=== PATIENT | male | born 1955 | race Caucasian/White ===

== ENCOUNTER 2023-01-23 10:21 | Inpatient (IN) | payer MEDICARE, SELFPAY ==
[2023-01-23] VITALS (63 sets, daily range): BP systolic 52–108; BP diastolic 36–86; PULSE 100–174; RESP 20–35; TEMP 36.2–37.9; O2SAT 93–100; BMI 47.2
--- NOTE | 2023-01-23 | ECHO_ITS ---
Patient Info Name: Harry Cuevas Age: 67 years : 1955 Gender: Male Ht: 67 in Wt: 302 lbs BSA: 2.62 m2 HR: 115 bpm BP: 70 / 50 mmHg Heart Rhythm: Tachycardia Exam Date: 01/23/2023 1:36 PM Exam Location: [facility] Pulmonary Patient Status: Inpatient Admit Date: 01/23/2023 Staff Ordering Physician: Renee Forrest MD Oracle Data Warehouse Developer: Carlo Colon RDCS, RT Attending Provider: Rosemary Zaidi DO Referring Physician: Lon ARENAS; Exam Type: CA echo dop color flow w con Study Info Indications I50.9 - Heart failure, unspecified Complete two-dimensional, color flow and Doppler transthoracic echocardiogram is performed with contrast to opacify the left ventricle and to improve the deliniation of the left ventricle endocardial borders. Summary 1. Left ventricular chamber dimension is mildly enlarged. 2. Left ventricular systolic function is moderately reduced, estimated at 35-40%. 3. There is mildly increased left ventricular wall thickness. 4. The left ventricular diastolic function is grade I diastolic dysfunction. 5. Right ventricular chamber dimension is mildly enlarged. 6. Right ventricular systolic function is reduced. 7. Left atrial chamber dimension is moderately enlarged. 8. Right atrial chamber dimension is mildly enlarged. 9. There is mild mitral valve regurgitation. Left Ventricle Left ventricular chamber dimension is mildly enlarged. Left ventricular systolic function is moderately reduced, estimated at 35-40%. There is mildly increased left ventricular wall thickness. The left ventricular diastolic function is grade I diastolic dysfunction. Right Ventricle Right ventricular chamber dimension is mildly enlarged. Right ventricular systolic function is reduced. Left Atria Left atrial chamber dimension is moderately enlarged. Right Atria Right atrial chamber dimension is mildly enlarged. Atrial Septum Intact interatrial septum visualized by color flow imaging. Aortic Valve The aortic valve is probable trileaflet. There is no aortic valve stenosis. There is trace aortic valve regurgitation. Pulmonic Valve The pulmonic valve is normal. There is no pulmonic valve stenosis. There is trace pulmonic regurgitation. Mitral Valve The mitral valve has normal leaflets. There is no mitral valve stenosis. There is mild mitral valve regurgitation. Tricuspid Valve The tricuspid valve leaflets are normal. There is no significant tricuspid valve stenosis. There is trace tricuspid valve regurgitation. Pericardium/Pleural The pericardium appears normal. There is no pericardial effusion. Aorta The aortic root size at the sinus of Valsalva is normal. The prox ascending aorta size is normal. Left Ventricular Outflow Tract Name Value Normal LVOT 2D LVOT Diameter 2.17 cm LVOT Doppler LVOT Peak Gradient 1 mmHg LVOT Mean Gradient 0 mmHg LVOT VTI 8.56 cm LVOT VTI/AV VTI Ratio 0.58 LVOT Stroke Volume 31.58 ml LVOT CO
--- NOTE | ~2023-01-23 | US_ITS ---
EXAMINATION: US renal BI DATE: 01/23/2023 17:12 INDICATION: Acute kidney injury. TECHNIQUE: Multiple ultrasound grayscale images of the kidneys were obtained. COMPARISON: CT 01/23/2023 FINDINGS: The right kidney measures 10.1 x 5.9 x 5.4 cm. The left kidney measures 10.6 x 6.7 x 5.1 cm. The kidn eys demonstrate normal parenchymal echogenicity. There is no hydronephrosis. The bladder is decompres sed by a Mcneal catheter. IMPRESSION: 1. Normal kidneys. No hydronephrosis. Reviewed, dictated and finalized at location A. L OPERATOR WHISKEY
--- NOTE | ~2023-01-23 | XR_ITS ---
XR chest 1V portable DATE: 01/25/2023 08:03 INDICATION: Septic shock TECHNIQUE: Portable upright AP chest on 01/25/2023 at 0748 hours COMPARISON: January 24, 2020 portable AP chest at 0507 hours January 23, 2023 portable AP chest at 26 hours FINDINGS: Cardiomegaly. There is left lower lobe infiltrate and/atelectasis and mild left pleural eff usion. No right pleural effusion is evident. IMPRESSION: No significant change since January 24, 2023 Reviewed, dictated and finalized at location A. ER PICKER
--- NOTE | ~2023-01-23 | XR_ITS ---
XR abdomen/kub 1V DATE: 01/26/2023 09:42 INDICATION: Vomiting, abdominal distention and tenderness TECHNIQUE: 2 portable supine AP views of the abdomen and pelvis COMPARISON: CTA chest abdomen FINDINGS: There is infiltrate or atelectasis in the lower lung zones. Prominent gaseous distention of the stomach. No small or large bowel dilatation or obstruction is not ed. No visceromegaly or significant abnormal calcification is noted. Prominent degenerative changes of the thoracic and lumbar spine. IMPRESSION: Prominent gaseous distention of the stomach; no small or large bowel dilatation or obstru ction is evident Reviewed, dictated and finalized at Location A. Reviewed, dictated and finalized at location A. F AIR DEFENSE OFFICER IMPRESSION: Prominent gaseous distention of the stomach; no small or large miles l dilatation or obstruction is evident
--- NOTE | ~2023-01-23 | XR_ITS ---
Portable chest x-ray Comparison: 01/23/2023 Clinical History: Pulmonary edema Findings: Small left pleural effusion is present. There is left basilar atelectatic change. Pulmonar y edema is significantly improved from prior exam. Cardiomediastinal silhouette is stable. Bones and soft tissues are unremarkable. Impression: Significant interval improvement in pulmonary edema since prior exam. Small left pleural effusion and probable left lower lobe atelectatic change. Reviewed, dictated and finalized at location . E [employer] Impression: Significant interval improvement in pulmonary edema since prior exam. Small left pleural effusion and probable left lower lobe atelectatic change.
--- NOTE | ~2023-01-23 | XR_ITS ---
Portable chest x-ray Comparison: 01/23/2023 Clinical History: Dyspnea Findings: There is worsening [id number] pulmonary edema pattern. No definite pleural effusions . Cardiomediastinal silhouette is stable. Bones and soft tissues are unremarkable. Impression: Worsening [id number] pulmonary edema pattern. Reviewed, dictated and finalized at [facility]. BOOKER Impression: Worsening [id number] pulmonary edema pattern.
--- NOTE | ~2023-01-23 | XR_ITS ---
XR abdomen NG/feed tube insert DATE: 01/26/2023 10:56 INDICATION: NG tube placement TECHNIQUE: Portable upright AP view on January 26, 2023 at 1050 hours COMPARISON: January 26, 2023 KUB at 0938 hours FINDINGS: An NG tube is present within the body of the stomach, the proximal side-port approximately 6 cm distal to the diaphragmatic hiatus. There is still some gaseous distention of the stomach. IMPRESSION: NG tube in stomach Reviewed, dictated and finalized at Location A. Reviewed, dictated and finalized at location A. LESOFT ADMINISTRATOR IMPRESSION: NG tube in stomach
--- NOTE | ~2023-01-23 | XR_ITS ---
Portable chest x-ray Comparison: None Clinical History: Chest pain Findings: Lungs are clear, without focal consolidation or pleural effusion. Cardiomediastinal silho uette is prominent. Bones and soft tissues are unremarkable. Impression: Clear lungs. Possible cardiomegaly. Reviewed, dictated and finalized at location . AL MANAGER Impression: Clear lungs. Possible cardiomegaly.
--- NOTE | ~2023-01-23 | CT_ITS ---
EXAMINATION: CTA chest abdomen pelvis DATE: 01/23/2023 11:39 AUTOMATIC GRINDER OPERATOR INDICATION: Chest pain. Suspected dissection. TECHNIQUE: Computed tomographic angiography (CTA) of the chest, abdomen, and pelvis was performed wit hout and with 100 mL Omnipaque-350 intravenous contrast. The dose-length product was 2073.87 mGy-cm. Maximum intensity projection 3D-reconstructions of the aorta and other arteries were constructed by zainab aparicio technologist on a separate workstation. COMPARISON: None. FINDINGS: CHEST CTA: Thoracic aorta within normal limits without aneurysm or dissection. Heart size normal. No large centr al pulmonary embolism. No thoracic lymphadenopathy. There is left lower lobe airspace consolidation, consistent with pneumonia. No endobronchial lesions. No pneumothorax. No pulmonary nodules or masses. ABDOMEN AND PELVIS CTA: Abdominal aorta is within normal limits without evidence for aneurysm or dissection. The celiac axis, SMA, renal arteries and KIKO are widely patent. Fatty infiltration of the liver. Gallbladder is distended. The spleen, pancreas, adrenal glands and k idneys are unremarkable. Gallbladder is present. Nonobstructive bowel pattern. No lymphadenopathy. Th ere is severe thoracolumbar spondylosis. There are degenerative changes of the hips. IMPRESSION: 1. Left lower lobe pneumonia with small left pleural effusion. 2: No significant vascular abnormality. No evidence for dissection. Reviewed, dictated and finalized at location L. MATIC GRINDER OPERATOR
--- NOTE | 2023-01-23 10:39 | ECG_ITS ---
Measurements Intervals [place] Rate: 143 P: MT: 0 QRS: 32 QRSD: 148 T: 16 QT: 304 QTc: 470 Interpretive Statements ATRIAL FIBRILLATION WITH RAPID VENTRICULAR RESPONSE INDETERMINATE AXIS RIGHT BUNDLE BRANCH BLOCK [120+ ms QRS DURATION, UPRIGHT V1, 40+ ms S IN I/aVL/V4/V5/V6] ABNORMAL ECG NO PREVIOUS ECG AVAILABLE FOR COMPARISON Electronically Signed On 01-23-2023 12:07:44 PRICING INTERN by Олег Santana M.D.
--- NOTE | 2023-01-23 10:44 | PC.NURSE ---
Setting up to cardiovert patient
[2023-01-23] MEDS: SODIUM CHLORIDE 0.9% IV 1,000 ML 999 ML IV CONT ×2 (10:45→12:18)
--- NOTE | 2023-01-23 10:45 | ED.CHESTPAIN ---
HPI - Chest Pain General Chief Complaint: Chest Pain Stated Complaint: chest and back pain/sob Time Seen by Provider: 01/23/23 10:34 Source: patient and EMS Mode of arrival: ambulatory Limitations: clinical condition History of Present Illness HPI narrative: Patient is a 67-year-old male presenting to the emergency department for evaluation of generalized weakness, chest pain with radiation to the back. Patient is unwell appearing at time of assessment, diaphoretic with extremities cool, clammy. Patient is currently alert and oriented to person, place, to time. Reporting aching chest pain over the past 12 hours. Patient reports pain began last night after he attended a caodaism dinner. Patient with associated weakness, shortness of breath and radiation of pain to the back. Patient has a history of hypertension, hyperlipidemia, no history of heart attack or heart problems. He does see a bottom filler at [facility]. No syncopal event. No lower extremity numbness. No ripping or tearing sensation to the flank. Related Data Home Medications Medication Instructions Recorded Confirmed allopurinol 300 mg tablet 300 mg PO DAILY 01/23/23 01/23/23 amlodipine 10 mg-benazepril 20 mg 1 cap PO DAILY 01/23/23 01/23/23 capsule atorvastatin 10 mg tablet 10 mg PO DAILY 01/23/23 01/23/23 furosemide 40 mg tablet 40 mg PO DAILY 01/23/23 01/23/23 levothyroxine 175 mcg tablet 175 mcg PO DAILY 01/23/23 01/23/23 metoprolol succinate 25 mg 25 mg PO DAILY 01/23/23 01/23/23 tablet,extended release 24 hr naproxen 500 mg tablet 500 mg PO BID 01/23/23 01/23/23 potassium chloride 10 mEq 10 meq PO DAILY 01/23/23 01/23/23 tablet,extended release semaglutide 14 mg tablet (Rybelsus) 14 mg PO DAILY 01/23/23 01/23/23 sildenafil 100 mg tablet 100 mg PO DAILY PRN Erectile 01/23/23 01/23/23 Dysfunction Allergies Allergy/AdvReac Type Severity Reaction Status Date / Time No Known Allergies Allergy Unverified 01/23/23 12:26 Review of Systems Review of Systems: ROS unobtainable: Yes unobtainable due to medical condition [facility] Past Medical History Medical History Gout HTN (hypertension), benign Hypothyroidism Obesity Surgical History Surgical History History of tonsillectomy and adenoidectomy Hx of cardiac cath Family History Family History Mother Carcinoma of colon Father Parkinson disease Social History Social History (Updated 01/23/23 @ 15:04 by Neetu Pinzon NP) Social History: He lives with his who is the poa. He has 2 children and is retired from the [employer] [place]. Code status full code Smoking status: Never smoker Alcohol intake: never Substance use: never Living arrangements: with family Gender identity (if verbalized by the patient): Male Exam Narrative: GENERAL: Awake, alert, diaphoretic, pale, ill-appearing HEAD: Normocephalic, atraumatic. EYES: PERRLA and EOMI. ENT: Nares clear, no rhinorrhea or epistaxis. Mucous membranes dry NECK: Supple. CHEST: Tachypneic, shallow breath sounds bilaterally HEART: Tachycardic, regular rhythm ABDOMEN: Obese, non distended, non tender EXTREMITIES: Normal range of motion. No pitting edema. SKIN: Warm, dry, no rash. NEURO:No focal deficits. Alert and oriented x3 Course Vital Signs Vital signs: Vital Signs Pulse Rate 159 H 01/23/23 10:30 Pulse Oximetry 97 01/23/23 10:30 Oxygen Delivery Room Air 01/23/23 10:30 Temperature 37.7 C H 01/23/23 18:09 Pulse Rate 109 H 01/23/23 18:46 Respiratory Rate 30 H 01/23/23 16:48 Blood Pressure 106/68 01/23/23 18:46 Pulse Oximetry 94 01/23/23 16:48 Oxygen Delivery BiPAP 01/23/23 16:48 Fraction of Inspired Oxygen 30 01/23/23 15:15 Procedures Arterial Line Arterial line #1: Date of Ar
[2023-01-23 10:50] LABS: Hematocrit 47.4 % (42.0-52.0); Hemoglobin 15.9 g/dL (14.0-18.0); Mean Corpuscular HGB Conc 33.5 g/dl (32-36); Mean Corpuscular Hemoglobin 30.7 pg (26-34); Mean Corpuscular Volume 91.5 fl (80-100); Mean Platelet Volume 9.5 fl (7.4-10.4); Platelet Count Result 166 k/mm3 (150-375); Red Blood Count 5.18 M/mm3 (4.6-6.20); Red Cell Distribution Width 14.9 % (11.5-14.5)
[2023-01-23] MEDS: fentaNYL CITRATE INJ (*CRX) 100 MCG/2 ML VIAL (10:51)
[2023-01-23] MEDS: ONDANSETRON INJ 4 MG/2 ML VIAL (10:55)
[2023-01-23 11:00] LABS: INR 1.4; Partial Thromboplastin Time 31.2 SECONDS (22.3-36.8); Prothrombin Time 16.4 Seconds (11.1-14.7)
[2023-01-23 11:07] LABS: Alanine Aminotransferase 43 U/L (6-50); Albumin Level 3.5 g/dL (3.5-5.1); Alkaline Phosphatase 56 U/L (38-126); Anion Gap 12 mmol/L (8-16); Aspartate Amino Transferase 30 U/L (17-59); Band Neutrophils Percent 11 % (0-6); Basophils Absolute Manual 0.24 K/mm3 (0.0-0.1); Basophils Percent Manual 1 % (0-1); Bilirubin,Total 3.3 mg/dL (0.2-1.3); Blood Urea Nitrogen 30 mg/dL (9-20); Calcium 8.8 mg/dL (8.4-10.2); Carbon Dioxide 22 mmol/L (22-30); Chloride 104 mmol/L (98-107); Estimated CRCL calculation 47 ml/min; Estimated Glomerular Filt Rate 36; Glucose 134 mg/dL (65-110); Lipase 68 U/L (23-300); Lymphocytes Absolute Manual 2.16 K/mm3 (1.1-4.5); Monocytes Absolute Manual 0.72 K/mm3 (0.1-0.90); Monocytes Percent Manual 3 % (3-9); Neutrophils Absolute Manual 20.88 K/mm3 (1.3-6.7); Neutrophils Percent Manual 76 % (46-73); Platelet Estimate Adequate (Adequate); Potassium 3.6 mmol/L (3.4-5.0); Schistocytes None Seen (NORMAL); Sodium 138 mmol/L (137-145); Total Cells Counted 100
[2023-01-23] MEDS: ASPIRIN 81 MG CHEWABLE TABLET 324 MG PO (11:10)
[2023-01-23 11:11] LABS: NT Pro B Type Natriuretic Pept 10900 pg/mL (19.9-100); Troponin I 0.023 ng/mL (0.000-0.034)
[2023-01-23] MEDS: NOREPINEPHRINE 8 MG/D5W 250 ML 8 MG/250 ML BAG 9.38 MG IV CONT (11:34)
--- NOTE | 2023-01-23 11:43 | ECG_ITS ---
Measurements Intervals [place] Rate: 120 P: 52 MI: 153 QRS: 22 QRSD: 150 T: 33 QT: 318 QTc: 451 Interpretive Statements SINUS TACHYCARDIA RIGHT BUNDLE BRANCH BLOCK [120+ ms QRS DURATION, UPRIGHT V1, 40+ ms S IN I/aVL/V4/V5/V6] ABNORMAL ECG COMPARED TO ECG 01/23/2023 10:36:58 SINUS TACHYCARDIA NOW PRESENT Electronically Signed On 01-23-2023 12:08:14 FINANCIAL REPORT SERVICE SALES AGENT by Олег Santana M.D.
[2023-01-23 11:51] LABS: Lactic Acid Reflex 6.2 mmol/L (0.7-2.0)
--- NOTE | 2023-01-23 12:02 | PC.NURSE ---
adrián from the lab called stated lab needs a new green and red top redraw - notified charge and computer lab aide
[2023-01-23] MEDS: HEPARIN SODIUM 5,000 UNITS/ML VIAL 7500 UNITS IV PUSH (12:18)
[2023-01-23] MEDS: HEPARIN SOD/D5W 100 UNITS/ML 25,000 UNITS/250 ML BAG 15 UNITS IV CONT (12:19)
[2023-01-23 12:28] LABS: Magnesium 1.7 mg/dL (1.6-2.3); Phosphorus 3.4 mg/dL (2.5-4.5)
[2023-01-23 12:37] LABS: NT Pro B Type Natriuretic Pept 10500 pg/mL (19.9-100)
--- NOTE | 2023-01-23 12:51 | PC.NURSE ---
Dr. Ewing at bedside speaking with ptHarry GUPTA to increase levophed to 15
--- NOTE | 2023-01-23 12:56 | PM.IMHP ---
H&P: HPI History of Present Illness Date/Time: 01/23/23 12:56 Chief Complaint: Chest pain Narrative: This is a 67-year-old male patient who complained of generalized weakness, chest pain that radiated to his back. At the time that I assessed him he was complaining more of left shoulder and left lower back pain. The patient stated the pain is worse with coughing. The pain the patient has been having chest pain for over 12 hours. Patient stated it began last night after he attended a islam dinner. We need patient is short of breath. He has a history of hypertension and hyperlipidemia. He has had no previous history of a myocardial infarction. He has a bilingual manager who is at [facility] [employer]. He denied any fever chills but states that he has a cough. His white count was noted to be 24,000. Neutrophil percentage is 76. Bands are 11. On his ABGs is pH is 7.414 CO2 was 26.5. BUN is 30 creatinine 1.9. GFR is 36 lactic [place] 6[place] [address]. Influenza A/B and RSV and COVID are negative. The patient became hypotensive. And the patient initially was refusing a central line. A PICC line has been ordered. I also offered a central line to the femoral area as well. Chest x-ray was read as clear lungs possible cardiomegaly. Chest abdominal pelvis CTA was read as the following. Left lower lobe pneumonia with small left pleural effusion. 2: No significant vascular abnormality. No evidence for dissection. The patient was given Levophed, cefepime, azithromycin, heparin drip,, vancomycin and IV fluids in the emergency room. The patient became short of breath and repeat chest x-ray was performed and was read as worsening mild to moderate pulmonary edema pattern. The patient was given IV Lasix and placed on a BiPAP. The supervisor plate forming has been consulted and has already seen the patient. The patient is being admitted to inpatient status on the date of service of 01/23/2023. Review of Systems Review of Systems: See HPi All systems reviewed & are unremarkable except as noted in HPI and below Constitutional: Constitutional: Reports as per HPI and Reports no additional constitutional complaints Eyes: Eyes: Reports as per HPI and Reports no additional eye complaints ENT: Reports system reviewed and no additional complaints, except as documented and Reports Normal hearing present Cardiovascular: Cardiovascular: Reports no additional cardiovascular complaints Respiratory: Respiratory: Reports no additional respiratory complaints and Reports no additional respiratory complaints Gastrointestinal: Gastrointestinal: Reports as per HPI and Reports no additional gastrointestinal complaints Musculoskeletal: Musculoskeletal: Reports no additional musculoskeletal complaints Integumentary/Breasts: Skin/Breast: Reports system reviewed and no additional complaints, except as docu and Reports as per HPI Neurologic: Reports system reviewed and no additional complaints, except as documented, Reports as per HPI and Reports Normal hearing present Psychiatric: Psychiatric: Reports no additional psychiatric complaints and Reports as per HPI Endocrine: Endocrine: Reports no additional endocrine complaints Hematologic/Lymphatic: Hematologic/Lymphatic: Reports no additional hematologic/lymphatic complaints Allergic/Immunologic: Allergic/Immunologic: Reports no additional allergic/immunologic complaints PMFSH Past Medical History Medical History Gout HTN (hypertension), benign Hypothyroidism Obesity Surgical History Surgical History History of tonsillectomy and adenoidectomy Hx of cardiac cath Family History Family History Mother Carcinoma of colon Father Parkinson disease Social History Social History (Updated 01/23/23 @ 15:04 by Neetu Pinzon NP) Social History: He
[2023-01-23 12:57] LABS: Influenza A QL RT-PCR Negative (Negative); Influenza B QL RT-PCR Negative (Negative); RSV RNA, RT-PCR Negative (Negative); SARS-CoV-2 RNA PCR Negative
--- NOTE | 2023-01-23 13:02 | WPDCNINT ---
Assessment and Plan Assessment and plan (1) Septic shock: Code(s): A41.9 - Sepsis, unspecified organism; R65.21 - Severe sepsis with septic shock Status: Acute Assessment and Plan: Patient presented with cough, weakness, chest pain, back pain which is likely related to coughing -01/23/2023: Chest CTA showed left lower lobe pneumonia with small left pleural effusion, no significant vascular abnormality, no evidence of dissection. No large central pulmonary embolus. Fatty infiltration of the liver, gallbladder is distended, nonobstructive bowel pattern. -patient is hypotensive with lactic acid of 6.2 -will trend lactic acid level -patient remains hypotensive after 1 L of IV fluids, started on Levophed, maintain MAP > 65 mmHg for adequate end organ perfusion -patient also has elevated bilirubin of 3.3 -creatinine is up to 1.9 -started on vancomycin, cefepime and azithromycin (01/23) -add stress dose steroids (2) Pneumonia: Code(s): J18.9 - Pneumonia, unspecified organism Status: Acute Assessment and Plan: Patient has left lower lobe pneumonia, antibiotics as above -continue supplemental oxygen -will add bronchodilators (3) Acute kidney injury: Code(s): N17.9 - Acute kidney failure, unspecified Status: Acute Assessment and Plan: Acute kidney injury likely related to septic shock, infection, hypotension -creatinine on admission is 1.9 -patient receiving fluids -will obtain CK levels, urine lytes and urine eosinophils -check renal ultrasound -monitor urine output, renal function electrolytes (4) Hyperbilirubinemia: Code(s): E80.6 - Other disorders of bilirubin metabolism Status: Acute Assessment and Plan: Hyperbilirubinemia, distended gallbladder and fatty infiltration were seen on CTA of the chest, abdomen and pelvis -will obtain right upper quadrant ultrasound -LFTs are within normal limits -continue to monitor (5) Hypothyroidism: Code(s): E03.9 - Hypothyroidism, unspecified Status: Acute Assessment and Plan: Will continue levothyroxine -TSH level is within normal limits (6) HTN (hypertension), benign: Code(s): I10 - Essential (primary) hypertension Status: Acute Assessment and Plan: Patient has taken his antihypertensive medications on the day of admission which are amlodipine/benazepril, furosemide, metoprolol -continue to hold all these medications for now patient is on pressors (7) Atrial fibrillation with RVR: Code(s): I48.91 - Unspecified atrial fibrillation Status: Acute Assessment and Plan: AFib RVR with hemodynamic compromise on admission status post cardioversion with improvement to sinus tachycardia with better rate controlled -patient started on heparin infusion -proBNP is elevated to 10,900 -troponin x1 is negative -will check echocardiogram -cardiology has been consulted from the ER Plan DVT prophylaxis: On heparin infusion Stress ulcer prophylaxis: Protonix Nutrition: Clear liquid diet for now Code Status: Full code Critical Care Time Spent: 51 minutes Due to a high probability of clinically significant, life threatening deterioration, the patient required my highest level of preparedness to intervene emergently and I personally spent this critical care time directly and personally managing the patient. This critical care time included obtaining a history; examining the patient; pulse oximetry; ordering and review of studies; arranging urgent treatment with development of a management plan; evaluation of patient's response to treatment; frequent reassessment; and discussions with other providers. It was exclusive of separately billable procedures and treating other patients and teaching time. Please see Assessment and Plan section and the rest of the note for further information on patient assessment and treatment This dictation may have been done utilizing a voice recognition
[2023-01-23] MEDS: IPRATROPIUM BR 0.02% INH SOLN 0.5 MG/2.5 ML VIAL INHALATION ×2 (13:20→21:03)
[2023-01-23 13:34] LABS: Creatine Kinase 33 U/L (55-170)
[2023-01-23] MEDS: LIDOCAINE 5% PATCH 1 PATCH TRANSDERM (13:38)
[2023-01-23] MEDS: LIDOCAINE HCL 1% PF INJ 5 ML VIAL INFILTRATE (14:00)
[2023-01-23 14:26] LABS: Alveolar/Arterial O2 Gradient 97.9 mmHg; Base Excess ABG -6.2 mEq/l (+/-2.0); Carboxyhemoglobin 1.5 % THb (0-2.0); Fractional Inspired Oxygen 30 %; HCO3 ABG 16.6 mEq/l (22.0-26.0); Methemoglobin ABG 0.4 %THb (0-1.5); Oxygen Content ABG 19.2 %vol (16.0-22.0); Oxygen Saturation ABG 96.7 % (95.0-100.0); Oxyhemoglobin 94.6 % THb (90.0-100.0); PCO2 ABG 26.5 mmHg (35.0-45.0); PO2 ABG 84.9 mmHg (80.0-100.0); PO2 FiO2 Ratio Arterial Blood 2.83 %; Reduced Hemoglobin 3.5 %THb (0-5.0); Total Hemoglobin 14.4 g/dL (12.0-18.0); pH ABG 7.415 (7.350-7.450)
[2023-01-23 14:26] LABS: Reflex Lactic Acid Yes or No Add Lactic
[2023-01-23 14:27] LABS: Device NON-INVASIVE VENT; Modified Allen's Test Pass; Site Drawn LEFT RADIAL
[2023-01-23 14:28] LABS: Non-Invasive Expiratory Pressure 5 CMH2O; Non-Invasive Inspiratory Pressure 12 CMH2O; Non-Invasive Vent Rate 4 /MIN
--- NOTE | 2023-01-23 14:34 | ADMGEN ---
This patient, Harry Cuevas, was admitted to Intensive Care Unit-6. Patient/family oriented to hospital policies and general routines including ID bracelet, bed and alarms, visiting hours, pain management, procedures, bathroom and other care routines, personal items, smoking policy, room service/diet, and visiting hours. Information on how to activate the Rapid Response Team has been discussed. Patient/Family are encouraged to report perceived risks to care and to ask questions if they do not understand what they are told or what they should do.
--- NOTE | 2023-01-23 14:52 | PM.CNCAR ---
Assessment and Plan Assessment and plan (1) Atrial fibrillation with RVR: Code(s): I48.91 - Unspecified atrial fibrillation Status: Acute Assessment and Plan: status post emergent cardioversion in the ER. Continue heparin drip. 2D echocardiogram Doppler is ordered and will be reviewed. (2) Acute kidney injury: Code(s): N17.9 - Acute kidney failure, unspecified Status: Acute Assessment and Plan: Likely secondary to septic shock/ hypotension from septic shock (3) Septic shock: Code(s): A41.9 - Sepsis, unspecified organism; R65.21 - Severe sepsis with septic shock Status: Acute Assessment and Plan: from pneumonia (4) HTN (hypertension), benign: Code(s): I10 - Essential (primary) hypertension Status: Acute Assessment and Plan: hold BP meds for now (5) Obstructive sleep apnea: Code(s): G47.33 - Obstructive sleep apnea (adult) (pediatric) Status: Acute Assessment and Plan: on BiPAP (6) Hyperlipidemia: Code(s): E78.5 - Hyperlipidemia, unspecified Status: Acute Assessment and Plan: continue statin (7) Pneumonia: Code(s): J18.9 - Pneumonia, unspecified organism Status: Acute Assessment and Plan: started on antibiotics . White count is significantly elevated in left lower lobe pneumonia noted on CT scan. (8) Cardiomyopathy: Code(s): I42.9 - Cardiomyopathy, unspecified Status: Acute Assessment and Plan: initial echo shows ejection fraction of 30-40%. While I cannot completely exclude the cardiomyopathy being a primary issue, it is more likely that it is secondary to underlying sepsis. he is on Levophed and vasopressin to be started and up titrated. Further supportive care through the venetian blind assembler, Dr. Ewing. Continue to trend troponins but 1st initial troponin is negative. History of Present Illness History of Present Illness Consult date/time: 01/23/23 14:52 Requesting physician: Renee Forrest MD Consult reason: atrial fibrillation Reason For Visit: septic shock,pneumonia,a fib with rvr Narrative: Reason consultation: Shock, atrial fibrillation Requesting provider: Dr. Forrest Date of service 01/23/2023 History patient is a 67-year-old male who had formally seen Cardiology at [facility]. Patient states that he did undergo cardiac catheterization in the past and did not have significant coronary disease. We details of this are not known. He does not routinely see cardiology at this point. He does have a family history of coronary disease and he himself has a history of hypertension, sleep apnea, hyperlipidemia, morbid obesity who presented to the hospital because of weakness, shortness of breath. Patient states that his shortness of breath started yesterday. He has felt feverish with chills and clammy. He has started to have a cough. He does have paroxysmal nocturnal dyspnea. Also describes orthopnea. He did have some chest pain but he states that his chest pain is not particularly new or different than what he has had a past and actually states that his chest pain is more on his sides . Does have some back pain on the left side. No syncope but was having some lightheadedness today. Came to hospital and was found to be in atrial fibrillation with rapid ventricular response. He did undergo emergent cardioversion due to hypotension and AFib with RVR. Despite cardioversion restorationist of sinus rhythm, and patient remained ill. CT scan does show a left lower lobe pneumonia. Troponins are negative x1. He was started on Levophed and his blood pressure has somewhat stabilized but still bit hypotensive. Review of Systems Review of Systems: All systems reviewed & are unremarkable except as noted in HPI and below Constitutional: Constitutional: Reports chills and Reports weakness Eyes: Eyes: Denies blurry vision ENT: Reports Normal heari
[2023-01-23] MEDS: NOREPINEPHRINE 8 MG/D5W 250 ML 8 MG/250 ML BAG 37.5 MG IV CONT (15:11)
[2023-01-23 15:12] LABS: Troponin I 0.034 ng/mL (0.000-0.034)
[2023-01-23] MEDS: VASOPRESSIN INJ 100 UNITS in DEXTROSE 5% 95 ML IV CONT ×2 (15:13→15:19)
[2023-01-23] MEDS: CENTRAL LINE FLUSH 10 ML IV PUSH (15:14)
[2023-01-23] MEDS: PANTOPRAZOLE SODIUM IV 40 MG VIAL IV PUSH (15:44)
[2023-01-23] MEDS: HYDROCORTISONE SODIUM SUCCINATE 100 MG/2 ML VIAL IV PUSH ×2 (15:44→21:40)
[2023-01-23 16:00] LABS: Potassium Urine Random 84.6 meq/L; Sodium Urine Random 59 meq/L
[2023-01-23 16:11] LABS: Lactic Acid 4.2 mmol/L (0.7-2.0)
[2023-01-23 16:36] LABS: Eosinophil Urine None Seen % (None Seen)
[2023-01-23 16:39] LABS: Urine Eos QC 2nd Tech Confirmed
[2023-01-23 17:45] LABS: Glucose Point of Care 138 mg/dl (65-105)
[2023-01-23] MEDS: NOREPINEPHRINE 8 MG/D5W 250 ML 8 MG/250 ML BAG 45 MG IV CONT (18:46)
[2023-01-23 19:54] LABS: Partial Thromboplastin Time > 200.0 SECONDS (22.3-36.8)
[2023-01-23] MEDS: SODIUM CHLORIDE 0.9% IV 1,000 ML 0.01 ML IV CONT (20:33)
[2023-01-23 23:09] LABS: Glucose Point of Care 149 mg/dl (65-105)
[2023-01-24] VITALS (39 sets, daily range): BP systolic 93–139; BP diastolic 54–84; PULSE 91–113; RESP 18–27; TEMP 36.8–37.3; O2SAT 94–99
[2023-01-24] MEDS: NOREPINEPHRINE 8 MG/D5W 250 ML 8 MG/250 ML BAG 50.63 MG IV CONT (00:09)
[2023-01-24] MEDS: IPRATROPIUM BR 0.02% INH SOLN 0.5 MG/2.5 ML VIAL INHALATION ×4 (03:00→20:30)
[2023-01-24 03:45] LABS: Hematocrit 43.8 % (42.0-52.0); Mean Corpuscular HGB Conc 34.2 g/dl (32-36); Mean Corpuscular Hemoglobin 30.5 pg (26-34); Mean Corpuscular Volume 89.2 fl (80-100); Mean Platelet Volume 9.4 fl (7.4-10.4); Platelet Count Result 158 k/mm3 (150-375); Red Blood Count 4.91 M/mm3 (4.6-6.20); Red Cell Distribution Width 15.1 % (11.5-14.5); White Blood Count 31.3 K/mm3 (4.5-10.0)
[2023-01-24 04:07] LABS: Lactic Acid Reflex 3.6 mmol/L (0.7-2.0)
[2023-01-24 04:22] LABS: Alanine Aminotransferase 27 U/L (6-50); Albumin Level 3.3 g/dL (3.5-5.1); Alkaline Phosphatase 57 U/L (38-126); Anion Gap 11 mmol/L (8-16); Aspartate Amino Transferase 26 U/L (17-59); Bilirubin,Total 2.6 mg/dL (0.2-1.3); Blood Urea Nitrogen 36 mg/dL (9-20); Calcium 8.1 mg/dL (8.4-10.2); Carbon Dioxide 18 mmol/L (22-30); Chloride 106 mmol/L (98-107); Estimated CRCL calculation 45 ml/min; Estimated Glomerular Filt Rate 34; Glucose 180 mg/dL (65-110); Lipase 55 U/L (23-300); Magnesium 1.8 mg/dL (1.6-2.3); Phosphorus 5.9 mg/dL (2.5-4.5); Sodium 135 mmol/L (137-145)
[2023-01-24 04:38] LABS: Partial Thromboplastin Time > 200.0 SECONDS (22.3-36.8)
[2023-01-24 05:30] LABS: CRP 43.4 mg/dL (<1.0)
[2023-01-24] MEDS: HYDROCORTISONE SODIUM SUCCINATE 100 MG/2 ML VIAL IV PUSH ×3 (06:05→21:04)
[2023-01-24] MEDS: LEVOTHYROXINE SODIUM 75 MCG TABLET PO (06:05)
[2023-01-24] MEDS: LEVOTHYROXINE SODIUM 100 MCG TABLET PO (06:05)
[2023-01-24] MEDS: CENTRAL LINE FLUSH 10 ML IV PUSH ×3 (06:06→21:04)
[2023-01-24] MEDS: NOREPINEPHRINE 8 MG/D5W 250 ML 8 MG/250 ML BAG 30 MG IV CONT (06:36)
[2023-01-24 06:42] LABS: Reflex Lactic Acid Yes or No Add Lactic
[2023-01-24 06:57] LABS: Band Neutrophils Percent 30 % (0-6); Lymphocytes Absolute Manual 0.93 K/mm3 (1.1-4.5); Lymphocytes Percent Manual 3 % (18-44); Neutrophils Absolute Manual 28.79 K/mm3 (1.3-6.7); Neutrophils Percent Manual 62 % (46-73); Total Cells Counted 100
[2023-01-24 06:58] LABS: Monocytes Absolute Manual 1.56 K/mm3 (0.1-0.90); Monocytes Percent Manual 5 % (3-9); Platelet Estimate Adequate (Adequate); Schistocytes None Seen (NORMAL)
[2023-01-24 07:58] LABS: Lactic Acid 4.2 mmol/L (0.7-2.0)
[2023-01-24] MEDS: PANTOPRAZOLE SODIUM IV 40 MG VIAL IV PUSH (08:04)
[2023-01-24] MEDS: ATORVASTATIN 10 MG TABLET PO (08:05)
[2023-01-24] MEDS: LIDOCAINE 5% PATCH 1 PATCH TRANSDERM (08:05)
[2023-01-24] MEDS: SODIUM BICARBONATE 8.4% 50 MEQ/50 ML SYRINGE IV PUSH (08:10)
[2023-01-24] MEDS: ALBUMIN HUMAN 25% 25 GM/100 ML 100 ML IVPB ×3 (08:10→17:43)
[2023-01-24] MEDS: HEPARIN SOD/D5W 100 UNITS/ML 25,000 UNITS/250 ML BAG 9 UNITS IV CONT (08:32)
--- NOTE | 2023-01-24 10:53 | PM.PNCARD ---
Progress Note: A&P Assessment and Plan (1) Atrial fibrillation with RVR: Code(s): I48.91 - Unspecified atrial fibrillation Status: Acute Assessment and Plan: status post emergent cardioversion in the ER. Continue heparin drip. Echo showed moderately reduced LVSF with EF 35%, grade I diastolic dysfunction. Will need to start some medical therapy when he is off pressors. (2) Acute kidney injury: Code(s): N17.9 - Acute kidney failure, unspecified Status: Acute Assessment and Plan: Likely secondary to septic shock/ hypotension from septic shock (3) Septic shock: Code(s): A41.9 - Sepsis, unspecified organism; R65.21 - Severe sepsis with septic shock Status: Acute Assessment and Plan: from pneumonia (4) HTN (hypertension), benign: Code(s): I10 - Essential (primary) hypertension Status: Acute Assessment and Plan: hold BP meds for now (5) Obstructive sleep apnea: Code(s): G47.33 - Obstructive sleep apnea (adult) (pediatric) Status: Acute Assessment and Plan: on BiPAP (6) Hyperlipidemia: Code(s): E78.5 - Hyperlipidemia, unspecified Status: Acute Assessment and Plan: continue statin (7) Pneumonia: Code(s): J18.9 - Pneumonia, unspecified organism Status: Acute Assessment and Plan: started on antibiotics . White count is significantly elevated in left lower lobe pneumonia noted on CT scan. (8) Cardiomyopathy: Code(s): I42.9 - Cardiomyopathy, unspecified Status: Acute Assessment and Plan: echo shows ejection fraction of 30-40%. Subjective Date/time seen: 01/24/23 10:53 Cardiology follow up for atrial fibrillation Feeling much better today. Remains in sinus rhythm. Still requiring pressor support. Review of Systems Review of Systems: All systems reviewed & are unremarkable except as noted in HPI and below Constitutional: Constitutional: Reports chills, Denies excessive sweating and Reports weakness Eyes: Eyes: Denies blurry vision ENT: Reports Normal hearing present and Denies neck pain Cardiovascular: Cardiovascular: Reports chest pain, Denies leg edema, Reports lightheadedness and Reports dyspnea Respiratory: Respiratory: Reports cough and Reports dyspnea Gastrointestinal: Gastrointestinal: Denies abdominal pain Genitourinary: Genitourinary: Denies hematuria Musculoskeletal: Musculoskeletal: Reports back pain and Denies neck pain Integumentary/Breasts: Skin/Breast: Denies erythema and Denies skin pain Neurologic: Reports Normal hearing present, Denies Abnormal speech present and Reports weakness Psychiatric: Psychiatric: Denies anxiety Endocrine: Endocrine: Denies excessive sweating Hematologic/Lymphatic: Hematologic/Lymphatic: Denies easy bleeding Allergic/Immunologic: Allergic/Immunologic: Denies GI upset with certain foods Exam Const: General: comfortable and no acute distress HENMT: Face/Nose/Sinus: Normal nares present Mouth: Yes moist mucous membranes Eyes: Sclera: sclerae normal Neck: Neck: supple Chest: Other: Resp: Auscultation: rales, wheezes and diminished lung sounds Cardio: Rate: tachycardic Rhythm: regular rhythm GI: Inspection: non-distended Skin: General skin exam: normal color Neuro: Cranial nerves: Yes Normal hearing present Speech: normal speech and No Abnormal speech present Sensory Exam: normal sensation Extrem: General: normal to inspection and no edema Psych: Mental Status: mental status grossly normal Objective Data Vital Signs Vital Signs: Vital Signs - 24 hr 01/23/23 10:57 01/23/23 11:12 01/23/23 11:17 Temperature Pulse Rate Pulse Rate [Monitor] 121 H 121 H 124 H Respiratory Rate 23 H 35 H 34 H Blood Pressure Blood Pressure [Left Arm] 67/51 L 67/51 L 72/46 L Pulse Oximetry 97 100 100 Oxygen Delivery Room Air Room Air Room Air Oxygen Flow Rate Fracti
[2023-01-24] MEDS: INSULIN ASPART (*BKC) 100 UNITS/ML SUB-Q (11:36)
[2023-01-24 11:45] LABS: Glucose Point of Care 216 mg/dl (65-105)
[2023-01-24 12:18] LABS: Partial Thromboplastin Time 94.7 SECONDS (22.3-36.8)
--- NOTE | 2023-01-24 13:02 | WPDINTPN ---
Progress Note: A&P Assessment and Plan (1) Septic shock: Code(s): A41.9 - Sepsis, unspecified organism; R65.21 - Severe sepsis with septic shock Status: Acute Assessment and Plan: Patient presented with cough, weakness, chest pain, back pain which is likely related to coughing -01/23/2023: Chest CTA showed left lower lobe pneumonia with small left pleural effusion, no significant vascular abnormality, no evidence of dissection. No large central pulmonary embolus. Fatty infiltration of the liver, gallbladder is distended, nonobstructive bowel pattern. -lactic acid trending down but remains elevated, will continue to trend -patient could not receive adequate amount of fluids as he became volume overloaded, -patient is on Levophed, will maintain mean arterial pressures > 65 mmHg -off vasopressin and Eddie-Synephrine -LFTs are within normal limits, bilirubin trending down -creatinine is elevated 2.0 -continue vancomycin, cefepime and azithromycin (01/23) -continue stress dose steroids -will add albumin for volume expansion (2) Pneumonia: Code(s): J18.9 - Pneumonia, unspecified organism Status: Acute Assessment and Plan: Patient has left lower lobe pneumonia, antibiotics as above -continue supplemental oxygen -continue bronchodilators -BiPAP at night and during the day when he is sleeping (3) Acute kidney injury: Code(s): N17.9 - Acute kidney failure, unspecified Status: Acute Assessment and Plan: Acute kidney injury likely related to septic shock, infection, hypotension -creatinine on admission is 1.9 -patient receiving fluids -CK levels within normal limits, urine electrolytes not showing a prerenal picture -01/23/2023 renal ultrasound: Normal kidneys no hydronephrosis -monitor urine output, renal function electrolytes (4) Hyperbilirubinemia: Code(s): E80.6 - Other disorders of bilirubin metabolism Status: Acute Assessment and Plan: Hyperbilirubinemia, distended gallbladder and fatty infiltration were seen on CTA of the chest, abdomen and pelvis -bilirubin trending down will continue to monitor -CT scan of the chest abdomen and pelvis showed fatty infiltration of the liver and gallbladder is distended. -LFTs are within normal limits -continue to monitor (5) Hypothyroidism: Code(s): E03.9 - Hypothyroidism, unspecified Status: Acute Assessment and Plan: Will continue levothyroxine -TSH level is within normal limits (6) HTN (hypertension), benign: Code(s): I10 - Essential (primary) hypertension Status: Acute Assessment and Plan: Patient has taken his antihypertensive medications on the day of admission which are amlodipine/benazepril, furosemide, metoprolol -continue to hold all these medications for now patient is on pressors (7) Atrial fibrillation with RVR: Code(s): I48.91 - Unspecified atrial fibrillation Status: Acute Assessment and Plan: AFib RVR with hemodynamic compromise on admission status post cardioversion with improvement to sinus tachycardia with better rate controlled -patient started on heparin infusion -proBNP is elevated to 10,900 -troponin x1 is negative -patient currently in sinus rhythm 01/23/2023 echocardiogram: Showed an EF of 35-40%, grade 1 diastolic dysfunction, RV systolic function is reduced, left atrial chamber is moderately enlarged, mild mitral valve regurg. -appreciate cardiology evaluation recommendation Plan DVT prophylaxis: On heparin infusion Stress ulcer prophylaxis: Protonix Nutrition: Clear liquid diet for now Code Status: Full code Critical Care Time Spent: 34 minutes Due to a high probability of clinically significant, life threatening deterioration, the patient required my highest level of preparedness to intervene emergently and I personally spent this critical care time directly and personally managing the patient. This critical care time included o
[2023-01-24 13:49] LABS: Lactic Acid Reflex 2.6 mmol/L (0.7-2.0)
[2023-01-24 17:29] LABS: Glucose Point of Care 142 mg/dl (65-105)
[2023-01-24 17:56] LABS: Partial Thromboplastin Time 72.8 SECONDS (22.3-36.8)
[2023-01-24] MEDS: NOREPINEPHRINE 8 MG/D5W 250 ML 8 MG/250 ML BAG 5.63 MG IV CONT ×2 (21:01→21:03)
[2023-01-24] MEDS: CEFEPIME 2 GM/NS 50 ML 2 GM/50 ML BAG IVPB (21:02)
[2023-01-25] VITALS (28 sets, daily range): BP systolic 102–139; BP diastolic 53–95; PULSE 81–105; RESP 15–24; TEMP 37–37.5; O2SAT 95–99
[2023-01-25] MEDS: ALBUMIN HUMAN 25% 25 GM/100 ML 100 ML IVPB ×3 (00:22→12:28)
[2023-01-25 00:33] LABS: Glucose Point of Care 150 mg/dl (65-105)
[2023-01-25 02:01] LABS: Partial Thromboplastin Time 83.1 SECONDS (22.3-36.8)
[2023-01-25] MEDS: IPRATROPIUM BR 0.02% INH SOLN 0.5 MG/2.5 ML VIAL INHALATION ×4 (02:46→20:19)
[2023-01-25] MEDS: CENTRAL LINE FLUSH 10 ML IV PUSH ×3 (05:29→21:05)
[2023-01-25] MEDS: HYDROCORTISONE SODIUM SUCCINATE 100 MG/2 ML VIAL IV PUSH (05:43)
[2023-01-25] MEDS: LEVOTHYROXINE SODIUM 75 MCG TABLET PO (05:44)
[2023-01-25 06:00] LABS: Glucose Point of Care 166 mg/dl (65-105)
[2023-01-25 06:22] LABS: Estimated CRCL calculation 113 ml/min; Estimated Glomerular Filt Rate > 60
[2023-01-25] MEDS: PANTOPRAZOLE SODIUM IV 40 MG VIAL IV PUSH (08:48)
[2023-01-25] MEDS: ATORVASTATIN 10 MG TABLET PO (08:48)
[2023-01-25] MEDS: LEVOTHYROXINE SODIUM 100 MCG TABLET PO (08:48)
[2023-01-25] MEDS: CEFEPIME 2 GM/NS 50 ML 2 GM/50 ML BAG IVPB ×2 (08:49→21:04)
--- NOTE | 2023-01-25 09:46 | WPDINTPN ---
Progress Note: A&P Assessment and Plan (1) Septic shock: Code(s): A41.9 - Sepsis, unspecified organism; R65.21 - Severe sepsis with septic shock Status: Acute Assessment and Plan: Patient presented with cough, weakness, chest pain, back pain which is likely related to coughing -01/23/2023: Chest CTA showed left lower lobe pneumonia with small left pleural effusion, no significant vascular abnormality, no evidence of dissection. No large central pulmonary embolus. Fatty infiltration of the liver, gallbladder is distended, nonobstructive bowel pattern. -lactic acid trending down -patient could not receive adequate amount of fluids as he became volume overloaded, -, will maintain mean arterial pressures > 65 mmHg -off Levophed, vasopressin and Eddie-Synephrine -LFTs are within normal limits, bilirubin trending down -creatinine is elevated 2.0 -continue vancomycin, cefepime and azithromycin (01/23) -will wean stress dose steroids -status post albumin for volume expansion (2) Pneumonia: Code(s): J18.9 - Pneumonia, unspecified organism Status: Acute Assessment and Plan: Patient has left lower lobe pneumonia, antibiotics as above -continue supplemental oxygen -continue bronchodilators -BiPAP at night and during the day when he is sleeping (3) Acute kidney injury: Code(s): N17.9 - Acute kidney failure, unspecified Status: Acute Assessment and Plan: Acute kidney injury likely related to septic shock, infection, hypotension -creatinine on admission is 2.0 -CK levels within normal limits, urine electrolytes not showing a prerenal picture -01/23/2023 renal ultrasound: Normal kidneys no hydronephrosis -monitor urine output, renal function electrolytes -creatinine down to 0.8 this morning (4) Hyperbilirubinemia: Code(s): E80.6 - Other disorders of bilirubin metabolism Status: Acute Assessment and Plan: Hyperbilirubinemia, distended gallbladder and fatty infiltration were seen on CTA of the chest, abdomen and pelvis -bilirubin trending down will continue to monitor -CT scan of the chest abdomen and pelvis showed fatty infiltration of the liver and gallbladder is distended. -LFTs are within normal limits -continue to monitor (5) Hypothyroidism: Code(s): E03.9 - Hypothyroidism, unspecified Status: Acute Assessment and Plan: Will continue levothyroxine -TSH level is within normal limits (6) HTN (hypertension), benign: Code(s): I10 - Essential (primary) hypertension Status: Acute Assessment and Plan: Patient has taken his antihypertensive medications on the day of admission which are amlodipine/benazepril, furosemide, metoprolol -continue to hold all these medications for now patient is on pressors (7) Atrial fibrillation with RVR: Code(s): I48.91 - Unspecified atrial fibrillation Status: Acute Assessment and Plan: AFib RVR with hemodynamic compromise on admission status post cardioversion with improvement to sinus tachycardia with better rate controlled -continue heparin infusion per edger tailer -proBNP is elevated to 10,900 -troponin x1 is negative -patient currently in sinus rhythm 01/23/2023 echocardiogram: Showed an EF of 35-40%, grade 1 diastolic dysfunction, RV systolic function is reduced, left atrial chamber is moderately enlarged, mild mitral valve regurg. -appreciate cardiology evaluation recommendation (8) Cardiomyopathy: Code(s): I42.9 - Cardiomyopathy, unspecified Status: Acute Assessment and Plan: Echocardiogram as above -cardiomyopathy which could be related to ischemia -patient will require goal-directed medical therapy for his LV dysfunction, currently blood pressures are soft, will introduce medications slowly, discussed with Cardiology Plan DVT prophylaxis: On heparin infusion Stress ulcer prophylaxis: Protonix Nutrition: Heart healthy diet Code Status: Full code
[2023-01-25 10:16] LABS: Basophils Absolute Auto 0.1 K/mm3 (0.0-0.1); Basophils Percent Auto 0.6 % (0.2-1.2); Eosinophils Absolute Auto 0.1 K/mm3 (0-0.3); Eosinophils Percent Auto 0.7 % (0-4.4); Hematocrit 33.7 % (42.0-52.0); Hemoglobin 11.6 g/dL (14.0-18.0); Immature Granulocyte Absolute 0.09 K/mm3 (0.00-0.031); Immature Granulocyte Percent A 0.8 % (0-0.5); Immature Platelet Fraction Pct 2.9 % (0.9-11.2); Lymphocytes Absolute Auto 0.16 K/mm3 (0.9-3.2); Lymphocytes Percent Auto 1.4 % (18.3-44.2); Mean Corpuscular HGB Conc 34.4 g/dl (32-36); Mean Corpuscular Volume 90.1 fl (80-100); Monocytes Absolute Auto 0.4 K/mm3 (0.1-0.6); Monocytes Percent Auto 3.9 % (2.6-8.5); Neutrophils Absolute Auto 10.3 K/mm3 (1.3-6.7); Neutrophils Percent Auto 92.6 % (45.5-73.1); Platelet Count Result 80 k/mm3 (150-375); Red Blood Count 3.74 M/mm3 (4.6-6.20); Red Cell Distribution Width 14.7 % (11.5-14.5); White Blood Count 11.2 K/mm3 (4.5-10.0)
[2023-01-25 10:23] LABS: Alanine Aminotransferase 26 U/L (6-50); Albumin Level 3.5 g/dL (3.5-5.1); Alkaline Phosphatase 47 U/L (38-126); Anion Gap 7 mmol/L (8-16); Aspartate Amino Transferase 29 U/L (17-59); Bilirubin,Total 1.8 mg/dL (0.2-1.3); Blood Urea Nitrogen 27 mg/dL (9-20); Calcium 8.4 mg/dL (8.4-10.2); Carbon Dioxide 25 mmol/L (22-30); Chloride 103 mmol/L (98-107); Estimated CRCL calculation 113 ml/min; Estimated Glomerular Filt Rate > 60; Glucose 196 mg/dL (65-110); Lactic Acid Reflex 2.4 mmol/L (0.7-2.0); Magnesium 2.3 mg/dL (1.6-2.3); Phosphorus 2.1 mg/dL (2.5-4.5); Potassium 3.2 mmol/L (3.4-5.0); Sodium 135 mmol/L (137-145)
--- NOTE | 2023-01-25 10:28 | PM.PNCARD ---
Progress Note: A&P Assessment and Plan (1) Atrial fibrillation with RVR: Code(s): I48.91 - Unspecified atrial fibrillation Status: Acute Plan this is a 67-year-old man who came into the hospital with septic shock related to pneumonia in that setting was also in AFib with hypotension and was emergently cardioverted. He is doing well and maintaining sinus rhythm. He does have a right bundle branch block as well patient had been on Leonel inhibitor, amlodipine as well as metoprolol for blood pressure. Will slowly resume GDMT for LV systolic dysfunction as he recovers. Blood pressure is just over 100 at this time I am therefore not going to start anything today Kaveh Medrano MD [facility] Subjective Date/time seen: Date of service:01/25/23 10:28 Interval history: Follow-up visit in this 67-year-old man with: Paroxysmal atrial fibrillation with hemodynamic compromise in the setting of pneumonia and septic shock as well. Patient was emergently cardioverted in the ER and has been maintaining sinus rhythm since then. No previous cardiac history. His a history of a negative left heart catheterization previously done at [facility]. His evaluation there included a false-positive stress test likely because of morbid obesity. In any event he is doing better asymptomatic this morning. Pressure support has been stopped at this point blood pressure is still marginal Exam Const: General: comfortable and no acute distress Other: very pleasant obese man no distress HENMT: Mouth: Yes moist mucous membranes Eyes: Sclera: sclerae normal Neck: Neck: supple Other: cannot assess venous distention because of his body habitus Resp: Effort & Inspection: normal respiratory effort Other: breath sounds are distant but relatively clear anteriorly. Could not sit him up for posterior auscultation Cardio: Rate: regular rate Rhythm: regular rhythm Other: PMI not palpable no audible gallop or murmur GI: GI Palp: Yes Soft to palpation Auscultation: normal bowel sounds Skin: General skin exam: normal color Neuro: Other: alert and oriented Extrem: Other: warm well perfused normal pulses /no edema Objective Data Vital Signs Vital Signs: Vital Signs - 24 hr 01/24/23 12:00 01/24/23 12:00 01/24/23 12:00 Temperature 37.2 C Pulse Rate 106 H 102 H Respiratory Rate 18 Blood Pressure 103/59 L Pulse Oximetry 98 97 Oxygen Delivery Nasal Cannula Oxygen Flow Rate 4 Fraction of Inspired Oxygen 01/24/23 14:00 01/24/23 14:00 01/24/23 15:04 Temperature Pulse Rate 108 H 106 H 97 Respiratory Rate 18 26 H Blood Pressure 100/58 L Pulse Oximetry 97 99 Oxygen Delivery BiPAP Oxygen Flow Rate Fraction of Inspired Oxygen 01/24/23 15:03 01/24/23 15:13 01/24/23 16:00 Temperature Pulse Rate 97 101 H Respiratory Rate 26 H 26 H Blood Pressure Pulse Oximetry 98 Oxygen Delivery Nasal Cannula Oxygen Flow Rate 4 Fraction of Inspired Oxygen 01/24/23 16:00 01/24/23 16:00 01/24/23 17:10 Temperature 37.3 C Pulse Rate 106 H 113 H 108 H Respiratory Rate 20 Blood Pressure 103/54 L Pulse Oximetry 97 97 Oxygen Delivery Nasal Cannula Oxygen Flow Rate 2 Fraction of Inspired Oxygen 01/24/23 18:00 01/24/23 18:00 01/24/23 20:34 Temperature Pulse Rate 103 H 103 H Respiratory Rate 18 Blood Pressure 103/60 Pulse Oximetry 96 97 Oxygen Delivery Nasal Cannula Oxygen Flow Rate 2 Fraction of Inspired Oxygen 01/24/23 20:35 01/24/23 19:51 01/24/23 21:01 Temperature Pulse Rate 101 H 105 H 105 H Respiratory Rate 25 H Blood Pressure 100/59 L 105/57 L Pulse Oximetry Oxygen Delivery Oxygen Flow Rate Fraction of Inspired Oxygen 01/24/23 21:03 01/24/23 21:03 01/24/23 20:00 Temperature Pulse Rate 105 H 105 H 105 H Respiratory Rate Blood Pressure 105/57 L 105/54 L Pulse Oximetry
[2023-01-25] MEDS: POTASSIUM PHOS/SODIUM PHOS 250 MG TABLET PO (12:27)
[2023-01-25] MEDS: HYDROCORTISONE SODIUM SUCCINATE 100 MG/2 ML VIAL 50 MG IV PUSH ×2 (12:27→21:05)
[2023-01-25] MEDS: HEPARIN SOD/D5W 100 UNITS/ML 25,000 UNITS/250 ML BAG 9 UNITS IV CONT (12:27)
[2023-01-25] MEDS: KCL 40 MEQ/WATER 100 ML 100 ML 25 ML IVPB (12:28)
[2023-01-25 13:10] LABS: Reflex Lactic Acid Yes or No Add Lactic
[2023-01-25 13:47] LABS: Lactic Acid 1.7 mmol/L (0.7-2.0)
[2023-01-25 16:45] LABS: Glucose Point of Care 140 mg/dl (65-105)
[2023-01-25 18:54] LABS: Vancomycin Trough 10.7 ug/mL (10.0-20.0)
[2023-01-25] MEDS: LEVALBUTEROL NEB 1.25 MG/3 ML 0.63 MG INHALATION (20:16)
[2023-01-25 20:48] LABS: Glucose Point of Care 157 mg/dl (65-105)
[2023-01-25 22:39] LABS: Glucose Point of Care 159 mg/dl (65-105)
[2023-01-25 23:37] LABS: Pneumococcal Antigen Urine Not Detected (Not Detected)
[2023-01-26] VITALS (20 sets, daily range): BP systolic 134–151; BP diastolic 74–99; PULSE 67–101; RESP 16–26; TEMP 37.1–37.7; O2SAT 93–98
[2023-01-26] MEDS: ONDANSETRON INJ 4 MG/2 ML VIAL IV PUSH (00:54)
--- NOTE | 2023-01-26 02:03 | ECG_ITS ---
Measurements Intervals [place] Rate: 91 P: 48 VA: 153 QRS: -5 QRSD: 172 T: 21 QT: 435 QTc: 538 Interpretive Statements SINUS RHYTHM RIGHT BUNDLE BRANCH BLOCK [120+ ms QRS DURATION, UPRIGHT V1, 40+ ms S IN I/aVL/V4/V5/V6] NONSPECIFIC T-WAVE ABNORMALITY ABNORMAL ECG COMPARED TO ECG 01/23/2023 10:53:33 HEART RATE IS REDUCED NO OTHER DIFFERENCE Electronically Signed On 01-26-2023 8:07:44 BOTTLE CAPPER by Kaveh Medrano M.D.
[2023-01-26] MEDS: PROCHLORPERAZINE EDISYLATE 10 MG/2 ML VIAL IV PUSH (02:27)
[2023-01-26 04:32] LABS: Basophils Absolute Auto 0.1 K/mm3 (0.0-0.1); Basophils Percent Auto 0.4 % (0.2-1.2); Eosinophils Absolute Auto 0.1 K/mm3 (0-0.3); Eosinophils Percent Auto 0.6 % (0-4.4); Hematocrit 38.1 % (42.0-52.0); Hemoglobin 13.1 g/dL (14.0-18.0); Immature Granulocyte Absolute 0.12 K/mm3 (0.00-0.031); Immature Granulocyte Percent A 0.9 % (0-0.5); Lymphocytes Absolute Auto 0.26 K/mm3 (0.9-3.2); Lymphocytes Percent Auto 1.9 % (18.3-44.2); Mean Corpuscular HGB Conc 34.4 g/dl (32-36); Mean Corpuscular Hemoglobin 30.9 pg (26-34); Mean Corpuscular Volume 89.9 fl (80-100); Mean Platelet Volume 10.1 fl (7.4-10.4); Monocytes Absolute Auto 0.7 K/mm3 (0.1-0.6); Monocytes Percent Auto 5.5 % (2.6-8.5); Neutrophils Absolute Auto 12.3 K/mm3 (1.3-6.7); Neutrophils Percent Auto 90.7 % (45.5-73.1); Platelet Count Result 87 k/mm3 (150-375); Red Blood Count 4.24 M/mm3 (4.6-6.20); Red Cell Distribution Width 14.7 % (11.5-14.5); White Blood Count 13.6 K/mm3 (4.5-10.0)
[2023-01-26 04:39] LABS: Lactic Acid Reflex 1.2 mmol/L (0.7-2.0)
[2023-01-26 04:42] LABS: Alanine Aminotransferase 26 U/L (6-50); Albumin Level 3.2 g/dL (3.5-5.1); Alkaline Phosphatase 42 U/L (38-126); Anion Gap 4 mmol/L (8-16); Aspartate Amino Transferase 27 U/L (17-59); Bilirubin,Total 1.5 mg/dL (0.2-1.3); Blood Urea Nitrogen 23 mg/dL (9-20); Calcium 7.9 mg/dL (8.4-10.2); Carbon Dioxide 25 mmol/L (22-30); Chloride 109 mmol/L (98-107); Estimated CRCL calculation 147 ml/min; Estimated Glomerular Filt Rate > 60; Glucose 126 mg/dL (65-110); Magnesium 2.4 mg/dL (1.6-2.3); Phosphorus 2.1 mg/dL (2.5-4.5); Potassium 2.9 mmol/L (3.4-5.0); Sodium 138 mmol/L (137-145)
[2023-01-26] MEDS: LORazepam INJ (*CRX) 2 MG/ML VIAL 1 MG IV PUSH (05:32)
[2023-01-26] MEDS: CENTRAL LINE FLUSH 10 ML IV PUSH ×3 (05:39→20:45)
[2023-01-26] MEDS: LEVOTHYROXINE SODIUM 75 MCG TABLET PO (08:45)
[2023-01-26] MEDS: ATORVASTATIN 10 MG TABLET PO (08:45)
[2023-01-26] MEDS: LEVOTHYROXINE SODIUM 100 MCG TABLET PO (08:45)
[2023-01-26] MEDS: HYDROCORTISONE SODIUM SUCCINATE 100 MG/2 ML VIAL 50 MG IV PUSH ×2 (08:46→20:45)
[2023-01-26] MEDS: PANTOPRAZOLE SODIUM IV 40 MG VIAL IV PUSH (08:46)
[2023-01-26] MEDS: POTASSIUM PHOS,M-BASIC-D-BASIC 40 MMOL in SODIUM CHLORIDE 0.9% IV 250 ML 43.89 MMOL IVPB (08:49)
[2023-01-26 09:03] LABS: Glucose Point of Care 122 mg/dl (65-105)
[2023-01-26] MEDS: IPRATROPIUM BR 0.02% INH SOLN 0.5 MG/2.5 ML VIAL INHALATION ×3 (09:04→19:39)
--- NOTE | 2023-01-26 09:06 | PM.PNCARD ---
Progress Note: A&P Assessment and Plan (1) Cardiomyopathy: Code(s): I42.9 - Cardiomyopathy, unspecified Status: Acute (2) Atrial fibrillation with RVR: Code(s): I48.91 - Unspecified atrial fibrillation Status: Acute Plan 67-year-old man with paroxysmal atrial fibrillation as well as left ventricular systolic dysfunction by echo. He is hemodynamically much better so I am going to start some medical therapy for his LV dysfunction. Initial doses of Entresto and metoprolol will be started today. Further workup of his LV systolic dysfunction will be considered when he is recovering from the acute illness. Kaveh Medrano MD [facility] Subjective Date/time seen: date of service:01/26/23 09:06 Interval history: Follow-up visit in this 67-year-old man with: Atrial fibrillation with hemodynamic instability emergently cardioverted in the ER out on admission. Also admitted with septic shock. Patient is now off of pressors and no longer hypotensive. Had a difficult last night with some nausea /vomiting. Feels better this morning. Exam Const: General: comfortable and no acute distress Other: Obese white male tired but otherwise well reporting no significant complaint HENMT: Mouth: Yes moist mucous membranes Eyes: Sclera: sclerae normal Neck: Neck: supple Resp: Effort & Inspection: normal respiratory effort Other: scattered central rhonchi are audible Cardio: Rate: regular rate Rhythm: regular rhythm Other: PMI is not palpable no audible murmur GI: GI Palp: Yes Soft to palpation Auscultation: normal bowel sounds Skin: General skin exam: normal color Neuro: Other: patient is alert and oriented Extrem: Other: adequate perfusion, normal pulses Objective Data Vital Signs Vital Signs: Vital Signs - 24 hr 01/25/23 10:00 01/25/23 12:00 01/25/23 11:00 Temperature 37.1 C 37.4 C Pulse Rate 104 H 105 H Respiratory Rate 22 H 20 Blood Pressure 102/53 L 112/76 117/83 Pulse Oximetry 96 95 Oxygen Delivery 01/25/23 10:00 01/25/23 12:00 01/25/23 12:00 Temperature Pulse Rate 104 H 102 H 102 H Respiratory Rate 18 Blood Pressure Pulse Oximetry 95 Oxygen Delivery Room Air 01/25/23 14:00 01/25/23 14:00 01/25/23 14:32 Temperature 37.5 C Pulse Rate 95 95 97 Respiratory Rate 20 20 Blood Pressure 116/78 Pulse Oximetry 95 Oxygen Delivery 01/25/23 14:46 01/25/23 16:00 01/25/23 16:00 Temperature 37.4 C Pulse Rate 101 H 102 H 102 H Respiratory Rate 20 22 H 22 H Blood Pressure 117/84 Pulse Oximetry 95 95 Oxygen Delivery Room Air 01/25/23 16:00 01/25/23 18:00 01/25/23 19:49 Temperature Pulse Rate 81 94 95 Respiratory Rate 22 H Blood Pressure Pulse Oximetry 95 Oxygen Delivery Room Air 01/25/23 19:50 01/25/23 20:18 01/25/23 20:00 Temperature 37.5 C Pulse Rate 95 97 96 Respiratory Rate 20 15 Blood Pressure 128/95 H Pulse Oximetry 95 Oxygen Delivery 01/25/23 22:00 01/25/23 23:34 01/25/23 23:35 Temperature 37.4 C Pulse Rate 96 93 94 Respiratory Rate 22 H 22 H Blood Pressure 139/91 H Pulse Oximetry 95 95 Oxygen Delivery Room Air 01/26/23 00:00 01/26/23 02:00 01/26/23 04:00 Temperature Pulse Rate 97 87 82 Respiratory Rate 24 H Blood Pressure Pulse Oximetry 98 Oxygen Delivery CPAP 01/26/23 04:00 01/26/23 04:00 01/26/23 06:00 Temperature 37.2 C Pulse Rate 82 97 87 Respiratory Rate 24 H Blood Pressure 142/99 H Pulse Oximetry 98 Oxygen Delivery 01/26/23 09:04 Temperature Pulse Rate 101 H Respiratory Rate 18 Blood Pressure Pulse Oximetry Oxygen Delivery Intake/Output Intake/Output: Intake & Output 01/23/23 01/24/23 01/25/23 01/26/23 23:59 23:59 23:59 23:59 Intake Total 2700 3400 3670 1000 Output Total 100 2500 4225 620 Balance 2600 900 -618 380 Meds/Results Medications: Active Medications Generic Name D
--- NOTE | 2023-01-26 09:42 | ECG_ITS ---
Measurements Intervals [place] Rate: 91 P: 48 [place]: 153 QRS: -5 QRSD: 172 T: 21 QT: 435 QTc: 538 Interpretive Statements SINUS RHYTHM RIGHT BUNDLE BRANCH BLOCK [120+ ms QRS DURATION, UPRIGHT V1, 40+ ms S IN I/aVL/V4/V5/V6] NONSPECIFIC T-WAVE ABNORMALITY ABNORMAL ECG WARNING: DATA QUALITY MAY AFFECT INTERPRETATION COMPARED TO ECG 01/23/2023 10:53:33 HEART RATE IS REDUCED Electronically Signed On 01-27-2023 7:02:43 CUTTING TORCH OPERATOR by Kaveh Medrano M.D.
[2023-01-26] MEDS: CEFEPIME 2 GM/NS 50 ML 2 GM/50 ML BAG IVPB ×2 (10:09→20:44)
[2023-01-26 10:18] LABS: Alanine Aminotransferase 30 U/L (6-50); Albumin Level 3.7 g/dL (3.5-5.1); Alkaline Phosphatase 52 U/L (38-126); Anion Gap 6 mmol/L (8-16); Aspartate Amino Transferase 28 U/L (17-59); Bilirubin,Total 1.6 mg/dL (0.2-1.3); Blood Urea Nitrogen 25 mg/dL (9-20); Calcium 9.1 mg/dL (8.4-10.2); Carbon Dioxide 25 mmol/L (22-30); Chloride 105 mmol/L (98-107); Estimated CRCL calculation 127 ml/min; Estimated Glomerular Filt Rate > 60; Glucose 183 mg/dL (65-110); Potassium 3.5 mmol/L (3.4-5.0); Sodium 136 mmol/L (137-145)
--- NOTE | 2023-01-26 10:49 | PM.IMPN ---
Progress Note: A&P Assessment and Plan (1) Septic shock: Code(s): A41.9 - Sepsis, unspecified organism; R65.21 - Severe sepsis with septic shock Status: Acute (2) Pneumonia: Code(s): J18.9 - Pneumonia, unspecified organism Status: Acute (3) Acute kidney injury: Code(s): N17.9 - Acute kidney failure, unspecified Status: Acute (4) Hyperbilirubinemia: Code(s): E80.6 - Other disorders of bilirubin metabolism Status: Acute (5) Hypothyroidism: Code(s): E03.9 - Hypothyroidism, unspecified Status: Acute (6) HTN (hypertension), benign: Code(s): I10 - Essential (primary) hypertension Status: Acute (7) Atrial fibrillation with RVR: Code(s): I48.91 - Unspecified atrial fibrillation Status: Acute (8) Cardiomyopathy: Code(s): I42.9 - Cardiomyopathy, unspecified Status: Acute Plan # septic shock present cough weakness chest pain back pain. Initial chest x-ray showed mild cardiomegaly. leukocytosis up to 31 K on admission.CTA showed left lower lobe with small effusion. No aortic dissection large PE elevated lactic acidosis of 6.2 continued to trend downward since admission. Patient could not receive adequate amount of fluid as he became volume overloaded. Was started on Levophed subsequently needed vasopressin and Eddie-Synephrine. He has been off Vasopressors now. He has also been started on Solu Cortef. Will slowly taper off Blood culture no growth to date. Urinalysis was not done # left lower lobe pneumonia on broad-spectrum antibiotics . Pneumococcal antigen is negative Legionella is pending influenza COVID and RSV negative MRSA swab is negative will stop vancomycin IV continue on cefepime and azithromycin. Azithromycin to complete 5 days course. # SHANDA with creatinine of 2 1 admissions. Likely due to septic shock infection and hypertension. CK within normal limit. Renal ultrasound with normal kidneys with no hydronephrosis. #Hyperbilirubinemia CTA with distended gallbladder and fatty infiltration. Continue to improve # hypothyroidism: Levothyroxine # hypertension: Antihypertensive on hold which are amlodipine/ benazepril, furosemide, metoprolol. # atrial fibrillation with rapid ventricular rate likely due to sepsis no prior history of AFib in past. Started on heparin infusion. Status post cardioversion in the ER troponin x1 is negative Remains in sinus rhythm. echocardiogram with EF 35-40% grade 1 diastolic dysfunction RV systolic function is reduced left atrial chambers moderate enlargement mild MR. Cardiology has been consulted. # systolic dysfunction: Newly diagnosed cardiology on board. Started on Entresto and metoprolol. # DVT prophylaxis on heparin drip # nausea vomiting: x-ray with large gastric distension. place NG tube today keep NPO Reglan. # code status full code # nutrition: NPO # stress ulcer prophylaxis: Protonix # disposition: Await clinical improvement Subjective Date/time seen: 01/26/23 10:49 Interval history: Transferred out of the ICU 01/25/2023. Patient presented with generalized weakness cough and chest pain with shortness of breath. WBC count 24,000 with bandemia lactic acid elevated at 6.2 BNP 810 1500 COVID flu RSV negative hypotensive diagnosis septic shock. Chest abdomen pelvis CTA with left lower lobe pneumonia with small left pleural effusion. Was started on Levophed cefepime azithromycin vancomycin. He was also started on heparin drip. Chest x-ray with moderate pulmonary edema pattern and was started on IV Lasix and BiPAP. He was admitted to the ICU. His vasopressors has been stopped 01/23/2023. He also had SHANDA with creatinine of 2 on admission. improved lactic acid. Troponin was negative. He went into AFib with RVR status post cardioversion in the ERReason for consult: Septic shock, pneumonia, leukocytosis, acute kidney injury, AFib RVR status post cardioversion in
[2023-01-26 12:07] LABS: Add Urine Microscopic? YES; Appearance Urine Turbid (Clear); Bacteria Urine None Seen /hpf; Bilirubin Urine Negative (Negative); Blood Urine 3+ (Negative); Color Urine Yellow (Yellow); Glucose Urine UA Negative (Negative); Ketones Urine Negative (Negative); Leukocyte Esterase Ur 1+ LEU/UL (NEGATIVE); Need Manual Microscopic Reviewed; Nitrate Urine Negative (Negative); Protein Urine 2+ mg/dL (Negative); Specific Grav Ur 1.028 (1.001-1.035); Squamous Epithelial Cell Urine Few /hpf (Few); Urobilinogen Urine 0.2 mg/dL (<2.0)
[2023-01-26 12:08] LABS: RBC Urine 51-75 /hpf (0-2)
[2023-01-26] MEDS: KCL 20 MEQ/D5/0.45% SOD CHL 1,000 ML 40 ML IV CONT (13:41)
[2023-01-26 13:46] LABS: Glucose Point of Care 114 mg/dl (65-105)
--- NOTE | 2023-01-26 18:04 | PC.NURSE ---
Spoke with patient's Sylvie. Patient's brother Douglas Cuevas is allowed to visit but is NOT to be given detailed information on the patient's health status, interventions, or health care in general. She states he has been estranged for quite some time and she does not want him involved in care.
[2023-01-26 18:39] LABS: Glucose Point of Care 107 mg/dl (65-105)
[2023-01-27] VITALS (23 sets, daily range): BP systolic 126–149; BP diastolic 80–102; PULSE 48–89; RESP 12–25; TEMP 37.3–37.7; O2SAT 93–97
[2023-01-27] MEDS: IPRATROPIUM BR 0.02% INH SOLN 0.5 MG/2.5 ML VIAL INHALATION ×4 (02:23→20:32)
[2023-01-27 05:23] LABS: Legionella pneumophila Ag Ur Not Detected (Not Detected)
[2023-01-27] MEDS: CENTRAL LINE FLUSH 10 ML IV PUSH ×3 (05:55→20:51)
[2023-01-27 07:28] LABS: Alanine Aminotransferase 38 U/L (6-50); Albumin Level 3.5 g/dL (3.5-5.1); Alkaline Phosphatase 49 U/L (38-126); Anion Gap 2 mmol/L (8-16); Aspartate Amino Transferase 30 U/L (17-59); Bilirubin,Total 1.2 mg/dL (0.2-1.3); Blood Urea Nitrogen 28 mg/dL (9-20); Calcium 9.1 mg/dL (8.4-10.2); Carbon Dioxide 30 mmol/L (22-30); Chloride 105 mmol/L (98-107); Estimated CRCL calculation 127 ml/min; Estimated Glomerular Filt Rate > 60; Glucose 106 mg/dL (65-110); Phosphorus 3.2 mg/dL (2.5-4.5); Potassium 3.6 mmol/L (3.4-5.0); Sodium 137 mmol/L (137-145)
[2023-01-27 07:49] LABS: Basophils Percent Auto 0.5 % (0.2-1.2); Hematocrit 37.7 % (42.0-52.0); Hemoglobin 12.3 g/dL (14.0-18.0); Immature Granulocyte Absolute 0.41 K/mm3 (0.00-0.031); Immature Granulocyte Percent A 5.5 % (0-0.5); Lymphocytes Absolute Auto 0.56 K/mm3 (0.9-3.2); Lymphocytes Percent Auto 7.5 % (18.3-44.2); Mean Corpuscular HGB Conc 32.6 g/dl (32-36); Mean Corpuscular Hemoglobin 30.2 pg (26-34); Mean Corpuscular Volume 92.6 fl (80-100); Mean Platelet Volume 10.1 fl (7.4-10.4); Monocytes Absolute Auto 0.9 K/mm3 (0.1-0.6); Monocytes Percent Auto 12.2 % (2.6-8.5); Neutrophils Absolute Auto 5.5 K/mm3 (1.3-6.7); Neutrophils Percent Auto 74.3 % (45.5-73.1); Platelet Count Result 67 k/mm3 (150-375); Red Blood Count 4.07 M/mm3 (4.6-6.20); Red Cell Distribution Width 14.9 % (11.5-14.5); White Blood Count 7.5 K/mm3 (4.5-10.0)
[2023-01-27 08:42] LABS: Magnesium 2.5 mg/dL (1.6-2.3)
--- NOTE | 2023-01-27 09:54 | PM.PNCARD ---
Progress Note: A&P Assessment and Plan (1) Cardiomyopathy: Code(s): I42.9 - Cardiomyopathy, unspecified <MIGUEL Crowe - Last Filed: 01/27/23 15:56> Status: Acute <MIGUEL Crowe - Last Filed: 01/27/23 15:56> Assessment and Plan: New diagnosis. EF 35%. He is clinically well-compensated. Hemodynamically, he is stable and has tolerated initiation of some GDMT with Entresto and metoprolol. I am going to add spironolactone and jardiance to his regimen today. Will need an ischemic evaluation eventually. <MIGUEL Crowe - Last Filed: 01/27/23 15:56> (2) Atrial fibrillation with RVR: Code(s): I48.91 - Unspecified atrial fibrillation <MIGUEL Crowe - Last Filed: 01/27/23 15:56> Status: Acute <MIGUEL Crowe - Last Filed: 01/27/23 15:56> Assessment and Plan: Occurrence of atrial fibrillation in the setting of septic shock. Underwent emergent DCCV in the emergency department because of hemodynamic instability. He has remained in sinus rhythm since that time. He had been anticoagulated with heparin but this was discontinued at some point over the weekend, perhaps because of thrombocytopenia. Since he had atrial fibrillation for an unknown duration and underwent DCCV, anticoagulation is indicated for at least one month. Start a/c with apixaban 5mg b.i.d. <MIGUEL Crowe - Last Filed: 01/27/23 15:56> Assessment and Plan: Attending addendum: I agree with the above documentation and plan of care as outlined. <Andre Lentz MD - Last Filed: 01/27/23 16:12> Subjective Date/time seen: 01/27/23 09:54 Cardiology follow up for atrial fibrillation, cardiomyopathy Feels ok this morning, complaining of discomfort from his NG tube. Denies any chest pain, palpitations, shortness of breath. <MIGUEL Crowe - Last Filed: 01/27/23 15:56> Review of Systems Review of Systems: All systems reviewed & are unremarkable except as noted in HPI and below <MIGUEL Crowe - Last Filed: 01/27/23 15:56> Constitutional: Constitutional: Reports chills, Denies excessive sweating and Reports weakness <MIGUEL Crowe - Last Filed: 01/27/23 15:56> Eyes: Eyes: Denies blurry vision <MIGUEL Crowe - Last Filed: 01/27/23 15:56> ENT: Reports Normal hearing present and Denies neck pain <DONNA CroweC - Last Filed: 01/27/23 15:56> Cardiovascular: Cardiovascular: Reports chest pain, Denies leg edema, Reports lightheadedness and Reports dyspnea <MIGUEL Crowe - Last Filed: 01/27/23 15:56> Respiratory: Respiratory: Reports cough and Reports dyspnea <MIGUEL Crowe - Last Filed: 01/27/23 15:56> Gastrointestinal: Gastrointestinal: Denies abdominal pain <MIGUEL Crowe - Last Filed: 01/27/23 15:56> Genitourinary: Genitourinary: Denies hematuria <MIGUEL Crowe - Last Filed: 01/27/23 15:56> Musculoskeletal: Musculoskeletal: Reports back pain and Denies neck pain <MIGUEL Crowe - Last Filed: 01/27/23 15:56> Integumentary/Breasts: Skin/Breast: Denies erythema and Denies skin pain <MIGUEL Crowe - Last Filed: 01/27/23 15:56> Neurologic: Reports Normal hearing present, Denies Abnormal speech present and Reports weakness <MIGUEL Crowe - Last Filed: 01/27/23 15:56> Psychiatric: Psychiatric: Denies anxiety <MIGUEL Crowe - Last Filed: 01/27/23 15:56> Endocrine: Endocrine: Denies excessive sweating <MIGUEL Crowe - Last Filed: 01/27/23 15:56> Hematologic/Lymphatic: Hematologic/Lymphatic: Denies easy bleeding <MIGUEL Crowe - Last Filed: 01/27/23 15:56> Allergic/Immunologic: Allergic/Immunologic: Denies GI upset with certain foods <MIGUEL Crowe - Last Filed: 01/27/23 15:56> Exam Narrative: Alert oriented appears to be in mild distress. Appears stated age. <MIGUEL Crowe - Last Filed: 01/27/23 15:56>
[2023-01-27] MEDS: CEFEPIME 2 GM/NS 50 ML 2 GM/50 ML BAG IVPB ×2 (10:35→20:50)
[2023-01-27] MEDS: HYDROCORTISONE SODIUM SUCCINATE 100 MG/2 ML VIAL 50 MG IV PUSH (10:36)
[2023-01-27] MEDS: SACUBITRIL/VALSARTAN 24-26 MG TABLET 1 TAB PO ×2 (10:37→20:50)
[2023-01-27] MEDS: PANTOPRAZOLE SODIUM IV 40 MG VIAL IV PUSH (10:37)
[2023-01-27] MEDS: ATORVASTATIN 10 MG TABLET PO (10:37)
[2023-01-27] MEDS: LIDOCAINE 5% PATCH 1 PATCH TRANSDERM (10:38)
[2023-01-27] MEDS: METOPROLOL SUCCINATE EXT REL 25 MG TABCR PO (10:38)
[2023-01-27 11:46] LABS: Glucose Point of Care 102 mg/dl (65-105)
--- NOTE | 2023-01-27 12:19 | PM.IMPN ---
Progress Note: A&P Assessment and Plan (1) Septic shock: Code(s): A41.9 - Sepsis, unspecified organism; R65.21 - Severe sepsis with septic shock Status: Acute (2) Pneumonia: Code(s): J18.9 - Pneumonia, unspecified organism Status: Acute (3) Acute kidney injury: Code(s): N17.9 - Acute kidney failure, unspecified Status: Acute (4) Hyperbilirubinemia: Code(s): E80.6 - Other disorders of bilirubin metabolism Status: Acute (5) Hypothyroidism: Code(s): E03.9 - Hypothyroidism, unspecified Status: Acute (6) HTN (hypertension), benign: Code(s): I10 - Essential (primary) hypertension Status: Acute (7) Atrial fibrillation with RVR: Code(s): I48.91 - Unspecified atrial fibrillation Status: Acute (8) Cardiomyopathy: Code(s): I42.9 - Cardiomyopathy, unspecified Status: Acute Plan # septic shock present cough weakness chest pain back pain. Initial chest x-ray showed mild cardiomegaly. leukocytosis up to 31 K on admission.CTA showed left lower lobe with small effusion. No aortic dissection large PE elevated lactic acidosis of 6.2 continued to trend downward since admission. Patient could not receive adequate amount of fluid as he became volume overloaded. Was started on Levophed subsequently needed vasopressin and Eddie-Synephrine. He has been off Vasopressors now. He has also been started on Solu Cortef. Will slowly taper off Blood culture no growth to date. Urinalysis Done await urine culture # left lower lobe pneumonia on broad-spectrum antibiotics . Pneumococcal antigen is negative Legionella is pending influenza COVID and RSV negative MRSA swab is negative. Vancomycin stopped. Continue IV continue on cefepime and azithromycin. Azithromycin to complete 5 days course. Will lower Solu Cortef do daily and will stop further # SHANDA with creatinine of 2 1 admissions. Likely due to septic shock infection and hypertension. CK within normal limit. Renal ultrasound with normal kidneys with no hydronephrosis. #Hyperbilirubinemia CTA with distended gallbladder and fatty infiltration. Continue to improve # hypothyroidism: Levothyroxine # hypertension: Antihypertensive on hold which are amlodipine/ benazepril, furosemide, metoprolol. # atrial fibrillation with rapid ventricular rate likely due to sepsis no prior history of AFib in past. Started on heparin infusion. Status post cardioversion in the ER troponin x1 is negative Remains in sinus rhythm. echocardiogram with EF 35-40% grade 1 diastolic dysfunction RV systolic function is reduced left atrial chambers moderate enlargement mild MR. Cardiology has been consulted. On heparin drip Which will be switched to apixaban today is discussed with aging room hand. # systolic dysfunction: Newly diagnosed cardiology on board. Started on Entresto and metoprolol. # DVT prophylaxis on heparin drip. Which has been stopped due to thrombocytopenia. Heparin-induced thrombocytopenia possible. will check hit panel. Will switch to apixaban 5 b.i.d.. # thrombocytopenia worsening. HIT versus sepsis versus antibiotics related. Will continue to monitor. No signs of bleeding. # nausea vomiting: x-ray with large gastric distension. NG tube placed. keep NPO Reglan.. Will start clear liquid diet today and advance as tolerated # code status full code # nutrition: NPO # stress ulcer prophylaxis: Protonix # disposition: Await clinical improvement Subjective Date/time seen: 01/27/23 12:19 Interval history: Transferred out of the ICU 01/25/2023. Patient presented with generalized weakness cough and chest pain with shortness of breath. WBC count 24,000 with bandemia lactic acid elevated at 6.2 BNP 810 1500 COVID flu RSV negative hypotensive diagnosis septic shock. Chest abdomen pelvis CTA with left lower lobe pneumonia with small left pleural effusion. Was started on Levophed cefepime azithr
[2023-01-27] MEDS: APIXABAN 5 MG TABLET PO ×2 (13:16→20:50)
[2023-01-27] MEDS: KCL 20 MEQ/D5/0.45% SOD CHL 1,000 ML 40 ML IV CONT (13:16)
[2023-01-27] MEDS: METOCLOPRAMIDE HCL INJ 10 MG/2 ML VIAL 5 MG IV PUSH ×2 (18:05→23:31)
[2023-01-27 18:14] LABS: Glucose Point of Care 133 mg/dl (65-105)
[2023-01-28] VITALS (17 sets, daily range): BP systolic 120–139; BP diastolic 80–84; PULSE 52–87; RESP 16–22; TEMP 36.8–37.2; O2SAT 95–100
[2023-01-28] MEDS: IPRATROPIUM BR 0.02% INH SOLN 0.5 MG/2.5 ML VIAL INHALATION ×4 (03:00→20:44)
[2023-01-28 05:50] LABS: Hemoglobin 12.6 g/dL (14.0-18.0); Mean Corpuscular HGB Conc 32.3 g/dl (32-36); Mean Corpuscular Hemoglobin 29.9 pg (26-34); Mean Corpuscular Volume 92.6 fl (80-100); Mean Platelet Volume 10.3 fl (7.4-10.4); Platelet Count Result 97 k/mm3 (150-375); Red Blood Count 4.21 M/mm3 (4.6-6.20); Red Cell Distribution Width 14.7 % (11.5-14.5); White Blood Count 8.9 K/mm3 (4.5-10.0)
[2023-01-28 06:11] LABS: Alanine Aminotransferase 40 U/L (6-50); Albumin Level 3.2 g/dL (3.5-5.1); Alkaline Phosphatase 44 U/L (38-126); Anion Gap 2 mmol/L (8-16); Aspartate Amino Transferase 27 U/L (17-59); Bilirubin,Total 1.6 mg/dL (0.2-1.3); Blood Urea Nitrogen 25 mg/dL (9-20); Carbon Dioxide 28 mmol/L (22-30); Chloride 104 mmol/L (98-107); Estimated CRCL calculation 146 ml/min; Estimated Glomerular Filt Rate > 60; Glucose 92 mg/dL (65-110); Magnesium 2.2 mg/dL (1.6-2.3); Potassium 3.6 mmol/L (3.4-5.0); Sodium 134 mmol/L (137-145)
[2023-01-28] MEDS: METOCLOPRAMIDE HCL INJ 10 MG/2 ML VIAL 5 MG IV PUSH (06:20)
[2023-01-28] MEDS: LEVOTHYROXINE SODIUM 100 MCG TABLET PO (06:20)
[2023-01-28] MEDS: LEVOTHYROXINE SODIUM 75 MCG TABLET PO (06:20)
[2023-01-28] MEDS: CENTRAL LINE FLUSH 10 ML IV PUSH ×3 (06:20→20:54)
[2023-01-28 07:20] LABS: Band Neutrophils Percent 9 % (0-6); Lymphocytes Absolute Manual 1.24 K/mm3 (1.1-4.5); Metamyelocytes Percent 1 %; Monocytes Absolute Manual 0.35 K/mm3 (0.1-0.90); Monocytes Percent Manual 4 % (3-9); Myelocytes Percent 3 %; Neutrophils Absolute Manual 6.94 K/mm3 (1.3-6.7); Neutrophils Percent Manual 69 % (46-73); Platelet Estimate Decreased (Adequate); Total Cells Counted 100
[2023-01-28 07:21] LABS: Anisocytosis 1+ (NORMAL); Ovalocytes 1+ (NORMAL); Schistocytes None Seen (NORMAL)
[2023-01-28] MEDS: SPIRONOLACTONE 25 MG TABLET PO (11:06)
[2023-01-28] MEDS: ATORVASTATIN 10 MG TABLET PO (11:06)
[2023-01-28] MEDS: METOPROLOL SUCCINATE EXT REL 25 MG TABCR PO (11:06)
[2023-01-28] MEDS: EMPAGLIFLOZIN 10 MG TABLET PO (11:06)
[2023-01-28] MEDS: SACUBITRIL/VALSARTAN 24-26 MG TABLET 1 TAB PO ×2 (11:06→20:53)
[2023-01-28] MEDS: PANTOPRAZOLE SODIUM IV 40 MG VIAL IV PUSH (11:07)
[2023-01-28] MEDS: APIXABAN 5 MG TABLET PO ×2 (11:07→20:53)
--- NOTE | 2023-01-28 11:11 | PM.PNCARD ---
Progress Note: A&P Assessment and Plan (1) Cardiomyopathy: Code(s): I42.9 - Cardiomyopathy, unspecified Status: Acute Assessment and Plan: New diagnosis. EF 35%. He is clinically well-compensated. Hemodynamically, he is stable and has tolerated initiation of some GDMT with Entresto and metoprolol, jardiance, and spironolactone. Will need an ischemic evaluation eventually. Will arrange for outpatient follow up in our office. Cardiology will sign off please do not hesitate to contact us with any questions. (2) Atrial fibrillation with RVR: Code(s): I48.91 - Unspecified atrial fibrillation Status: Acute Assessment and Plan: Occurrence of atrial fibrillation in the setting of septic shock. Underwent emergent DCCV in the emergency department because of hemodynamic instability. He has remained in sinus rhythm since that time. Since he had atrial fibrillation for an unknown duration and underwent DCCV, anticoagulation is indicated for at least one month. Continue a/c with apixaban 5mg b.i.d. Subjective Date/time seen: 01/28/23 11:11 Cardiology follow up for atrial fibrillation, cardiomyopathy Feeling much better today. More comfortable now that his NG tube has been removed. Sitting up in the chair today. States he wants to go home. Review of Systems Review of Systems: All systems reviewed & are unremarkable except as noted in HPI and below Constitutional: Constitutional: Reports chills, Denies excessive sweating and Reports weakness Eyes: Eyes: Denies blurry vision ENT: Reports Normal hearing present and Denies neck pain Cardiovascular: Cardiovascular: Reports chest pain, Denies leg edema, Reports lightheadedness and Reports dyspnea Respiratory: Respiratory: Reports cough and Reports dyspnea Gastrointestinal: Gastrointestinal: Denies abdominal pain Genitourinary: Genitourinary: Denies hematuria Musculoskeletal: Musculoskeletal: Reports back pain and Denies neck pain Integumentary/Breasts: Skin/Breast: Denies erythema and Denies skin pain Neurologic: Reports Normal hearing present, Denies Abnormal speech present and Reports weakness Psychiatric: Psychiatric: Denies anxiety Endocrine: Endocrine: Denies excessive sweating Hematologic/Lymphatic: Hematologic/Lymphatic: Denies easy bleeding Allergic/Immunologic: Allergic/Immunologic: Denies GI upset with certain foods Exam Narrative: Alert oriented in no distress. Appears stated age. Const: General: comfortable, no acute distress, in distress and uncomfortable Other: Obese white male sitting up in the chair HENMT: Face/Nose/Sinus: Normal nares present Mouth: Yes moist mucous membranes Eyes: Sclera: sclerae normal Neck: Neck: supple Other: cannot assess venous distention because of his body habitus Chest: Other: Resp: Effort & Inspection: normal respiratory effort Auscultation: diminished lung sounds Other: Cardio: Rate: regular rate Rhythm: regular rhythm Heart sounds: no murmurs Other: GI: Inspection: non-distended Auscultation: normal bowel sounds Skin: General skin exam: normal color Neuro: Cranial nerves: Yes Normal hearing present Speech: normal speech and No Abnormal speech present Sensory Exam: normal sensation Other: patient is alert and oriented Extrem: General: normal to inspection and no edema Other: adequate perfusion, normal pulses Psych: Mental Status: mental status grossly normal Objective Data Vital Signs Vital Signs: Vital Signs - 24 hr 01/27/23 12:00 01/27/23 12:00 01/27/23 12:00 Temperature 37.7 C H Pulse Rate 74 73 67 Respiratory Rate 12 Blood Pressure 139/95 H Pulse Oximetry 94 96 Oxygen Delivery Room Air 01/27/23 13:35 01/27/23 13:45 01/27/23 16:00 Temperature Pulse Rate 59 L 64 61 Respiratory Rate 18 18 Blood Pressure Pulse Oximetry Oxygen Delivery 01/27/23 16:00 01/27/23 19:55 01/27/23 20:35
[2023-01-28] MEDS: CEFEPIME 2 GM/NS 50 ML 2 GM/50 ML BAG IVPB ×2 (11:22→20:54)
--- NOTE | 2023-01-28 15:56 | PM.IMPN ---
Progress Note: A&P Assessment and Plan (1) Septic shock: Code(s): A41.9 - Sepsis, unspecified organism; R65.21 - Severe sepsis with septic shock Status: Acute (2) Pneumonia: Code(s): J18.9 - Pneumonia, unspecified organism Status: Acute (3) Acute kidney injury: Code(s): N17.9 - Acute kidney failure, unspecified Status: Acute (4) Hyperbilirubinemia: Code(s): E80.6 - Other disorders of bilirubin metabolism Status: Acute (5) Hypothyroidism: Code(s): E03.9 - Hypothyroidism, unspecified Status: Acute (6) HTN (hypertension), benign: Code(s): I10 - Essential (primary) hypertension Status: Acute (7) Atrial fibrillation with RVR: Code(s): I48.91 - Unspecified atrial fibrillation Status: Acute (8) Cardiomyopathy: Code(s): I42.9 - Cardiomyopathy, unspecified Status: Acute Plan # septic shock present cough weakness chest pain back pain. Initial chest x-ray showed mild cardiomegaly. leukocytosis up to 31 K on admission.CTA showed left lower lobe with small effusion. No aortic dissection large PE elevated lactic acidosis of 6.2 continued to trend downward since admission. Patient could not receive adequate amount of fluid as he became volume overloaded. Was started on Levophed subsequently needed vasopressin and Eddie-Synephrine. He has been off Vasopressors now. He has also been started on Solu Cortef. . Today Blood culture no growth to date. Urinalysis Done await urine culture Continue cefepime for 7 total days for pneumonia. # left lower lobe pneumonia on broad-spectrum antibiotics . Pneumococcal antigen is negative Legionella is pending influenza COVID and RSV negative MRSA swab is negative. Vancomycin stopped. Continue IV continue on cefepime and azithromycin. Azithromycin to complete 5 days course. Solu Cortef stopped today. Continue cefepime for 7 total days # SHANDA with creatinine of 2 1 admissions. Likely due to septic shock infection and hypertension. CK within normal limit. Renal ultrasound with normal kidneys with no hydronephrosis. #Hyperbilirubinemia CTA with distended gallbladder and fatty infiltration. Continue to improve # hypothyroidism: Levothyroxine # hypertension: Antihypertensive on hold which are amlodipine/ benazepril, furosemide, metoprolol. # atrial fibrillation with rapid ventricular rate likely due to sepsis no prior history of AFib in past. Started on heparin infusion. Status post cardioversion in the ER troponin x1 is negative Remains in sinus rhythm. echocardiogram with EF 35-40% grade 1 diastolic dysfunction RV systolic function is reduced left atrial chambers moderate enlargement mild MR. Cardiology has been consulted. On heparin dripHowever was stopped due to thrombocytopenia Hit antibody sent. Switch to apixaban. Thrombocytopenia improving. # systolic dysfunction: Newly diagnosed cardiology on board. Started on Entresto and metoprolol. # DVT prophylaxis on heparin drip. Which has been stopped due to thrombocytopenia. Heparin-induced thrombocytopenia possible. will check hit panel. Switched to apixaban 5 mg b.i.d. # thrombocytopenia Worsened since admission HIT versus sepsis versus antibiotics related. Will continue to monitor. No signs of bleeding. thrombocytopenia now improving could be antibiotic related # nausea vomiting: x-ray with large gastric distension. NG tube placed. keep NPO Reglan.. Started on clear liquid diet which he tolerated well. NG has been removed since then will advance diet further. Having bowel movement. # code status full code # nutrition: Cardiac diet # stress ulcer prophylaxis: Protonix # disposition: ambulate. PT OT. Home in 1-2 days Subjective Date/time seen: 01/28/23 15:56 Interval history: Transferred out of the ICU 01/25/2023. Patient presented with generalized weakness cough and chest pain with shortne
[2023-01-29] VITALS (10 sets, daily range): BP systolic 131–139; BP diastolic 90–91; PULSE 58–87; RESP 18–20; TEMP 36–36.8; O2SAT 95–100
[2023-01-29] MEDS: METOCLOPRAMIDE HCL INJ 10 MG/2 ML VIAL 5 MG IV PUSH ×2 (01:37→06:26)
[2023-01-29] MEDS: IPRATROPIUM BR 0.02% INH SOLN 0.5 MG/2.5 ML VIAL INHALATION ×2 (02:48→08:18)
[2023-01-29 06:10] LABS: Hematocrit 40.9 % (42.0-52.0); Hemoglobin 13.4 g/dL (14.0-18.0); Immature Platelet Fraction Pct 9.7 % (0.9-11.2); Mean Corpuscular HGB Conc 32.8 g/dl (32-36); Mean Corpuscular Hemoglobin 30.2 pg (26-34); Mean Corpuscular Volume 92.1 fl (80-100); Red Blood Count 4.44 M/mm3 (4.6-6.20); Red Cell Distribution Width 14.7 % (11.5-14.5); White Blood Count 11.7 K/mm3 (4.5-10.0)
[2023-01-29] MEDS: CENTRAL LINE FLUSH 10 ML IV PUSH (06:12)
--- NOTE | 2023-01-29 06:12 | PC.NURSE ---
Patient transferred to IMU rm 232 per wheelchair with belongings.
[2023-01-29 06:22] LABS: Alanine Aminotransferase 42 U/L (6-50); Albumin Level 3.2 g/dL (3.5-5.1); Alkaline Phosphatase 46 U/L (38-126); Anion Gap 1 mmol/L (8-16); Aspartate Amino Transferase 26 U/L (17-59); Bilirubin,Total 1.6 mg/dL (0.2-1.3); Blood Urea Nitrogen 22 mg/dL (9-20); Calcium 8.9 mg/dL (8.4-10.2); Carbon Dioxide 29 mmol/L (22-30); Chloride 104 mmol/L (98-107); Estimated CRCL calculation 127 ml/min; Estimated Glomerular Filt Rate > 60; Glucose 89 mg/dL (65-110); Magnesium 2.2 mg/dL (1.6-2.3); Potassium 3.6 mmol/L (3.4-5.0); Sodium 134 mmol/L (137-145)
[2023-01-29] MEDS: LEVOTHYROXINE SODIUM 75 MCG TABLET PO (06:25)
[2023-01-29] MEDS: LEVOTHYROXINE SODIUM 100 MCG TABLET PO (06:25)
[2023-01-29 07:05] LABS: Total Cells Counted 100
[2023-01-29 07:06] LABS: Band Neutrophils Percent 4 % (0-6); Eosinophils Absolute Manual 0.23 K/mm3 (0.02-0.5); Eosinophils Percent Manual 2 % (0-4); Lymphocytes Percent Manual 12 % (18-44); Metamyelocytes Percent 2 %; Monocytes Absolute Manual 1.28 K/mm3 (0.1-0.90); Monocytes Percent Manual 11 % (3-9); Neutrophils Absolute Manual 8.54 K/mm3 (1.3-6.7); Neutrophils Percent Manual 69 % (46-73); Platelet Clumps Present; Schistocytes None Seen (NORMAL)
[2023-01-29] MEDS: EMPAGLIFLOZIN 10 MG TABLET PO (08:07)
[2023-01-29] MEDS: PANTOPRAZOLE SODIUM IV 40 MG VIAL IV PUSH (08:07)
[2023-01-29] MEDS: LIDOCAINE 5% PATCH 1 PATCH TRANSDERM (08:07)
[2023-01-29] MEDS: APIXABAN 5 MG TABLET PO (08:08)
[2023-01-29] MEDS: SACUBITRIL/VALSARTAN 24-26 MG TABLET 1 TAB PO (08:09)
[2023-01-29] MEDS: SPIRONOLACTONE 25 MG TABLET PO (08:09)
[2023-01-29] MEDS: METOPROLOL SUCCINATE EXT REL 25 MG TABCR PO (08:09)
[2023-01-29] MEDS: ATORVASTATIN 10 MG TABLET PO (08:09)
--- NOTE | 2023-01-29 09:57 | PM.DS ---
DS: Admitting Diagnosis Discharge Date 01/29/23 Admitting Diagnosis Septic shock SHANDA Afibb Systolic Dysfunction DS: Discharge Diagnosis Discharge Diagnosis (1) Cardiomyopathy: Code(s): I42.9 - Cardiomyopathy, unspecified Status: Acute (2) Atrial fibrillation with RVR: Code(s): I48.91 - Unspecified atrial fibrillation Status: Acute (3) Acute kidney injury: Code(s): N17.9 - Acute kidney failure, unspecified Status: Acute (4) Septic shock: Code(s): A41.9 - Sepsis, unspecified organism; R65.21 - Severe sepsis with septic shock Status: Acute (5) Pneumonia: Code(s): J18.9 - Pneumonia, unspecified organism Status: Acute DS: Summary Hospital Course Reason for hospitalization: Septic shock SHANDA Afibb Systolic Dysfunction Hospital Course: 67 years old M with PMH of HTN presented with weakness, chest pain. Was found to be in septic shock 2/2 PNA. Was admitted to ICU, started on pressor support, broad spectrum abx.Treated with 7 days of cefepime, 5 days of azithromycin,cultures remained negative. Also had SHANDA upn admission likely from sepsis, which improved with supportive management. Develped afibb with RVR in setting of sepsis, cardiology was consulted, echo with depressed EF, started on heparin drip, developed thrombocytopenia, switched to eliquis. BB for rate control Started on entresto for HF. Advised to follow up with cardiology as outpatient. Discharged home in stable condition. Status at Discharge Functional status at discharge: independent ambulation Overall status at discharge: patient is back to baseline Time Spent with Patient Time attestation: Total time spent providing and/or coordinating discharge services: Exam Narrative: General:? Patient is awake, alert in no distress, ? Alert and oriented x3 HEENT:? Moist oral mucosa, pupils equal sclera is clear Neck:? Patient has a thick neck Respiratory:? Decreased air entry at bases, no wheezing, coarse breath sounds at bases Cardiac:?regular rate and rhythm Abdomen:? Soft, non tender,, hypoactive bowel sounds, obese Extremities:?no edema, palpable pedal pulses Neuro:? Patient is awake, alert, oriented x3, nonfocal, able to answer questions appropriately and follows simple commands Skin:? No skin lesions Psych:? Normal mentation and affect DS: Data Data Completed and Pending Labs on day of discharge: Labs from last 24 hours 01/29/23 01/29/23 05:39 05:39 WBC 11.7 H RBC 4.44 L Hgb 13.4 L Hct 40.9 L MCV 92.1 MCH 30.2 MCHC 32.8 RDW 14.7 H Plt Count TNP MPV TNP Immature Gran % (Auto) Not Reportable Neut % (Auto) Not Reportable Lymph % (Auto) Not Reportable Vernon % (Auto) Not Reportable Eos % (Auto) Not Reportable Baso % (Auto) Not Reportable Lymph # (Auto) Not Reportable Vernon # (Auto) Not Reportable Eos # (Auto) Not Reportable Baso # (Auto) Not Reportable Abs Immat Gran (auto) Not Reportable Absolute Neuts (auto) Not Reportable Absolute Nucleated RBC Not Reportable Total Counted 100 Neutrophils % (Manual) 69 Band Neutrophils % 4 Lymphocytes % (Manual) 12 L Monocytes % (Manual) 11 H Eosinophils % (Manual) 2 Metamyelocytes % 2 Nucleated RBC % Not Reportable Abs Neuts (Manual) 8.54 H Abs Lymphs (Manual) 1.40 Abs Monocytes (Manual) 1.28 H Absolute Eos (Manual) 0.23 Platelet Estimate TNP Clumped Platelets Present % Immature Plt Fraction 9.7 Schistocytes None seen Sodium 134 L Potassium 3.6 Chloride 104 Carbon Dioxide 29 Anion Gap 1 L BUN 22 H Creatinine 0.70 Estim Creat Clear Calc 127 Estimated GFR > 60 Glucose 89 Calcium 8.9 Magnesium 2.2 Total Bilirubin 1.6 H AST 26 ALT 42 Alkaline Phosphatase 46 Total Protein 6.0 L Albumin 3.2 L Discharge Plan Discharge Attending physician on discharge: Gregoria Mora Consulting providers: Mariusz Ewing ; Олег Santana
[2023-01-29 14:43] LABS: Heparin Induced Platelet Antib Negative (Negative)
== END 2023-01-29 12:36 | disposition home or self-care (01) | DRG 871 ==
LOC: ANHED 11:42 → ANHICU 13:16 → ANHIMU 01-29 09:57 → ANHICU 01-30 08:30 → ANHIMU 01-30 08:30
PROVIDERS: Internal Medicine; Admitting Provider Student in an Organized Health Care Education/Training Program; Emergency Provider Emergency Medicine; Visit Provider Internal Medicine
DX: A41.9 Sepsis, unspecified organism (principal); J18.9 Pneumonia, unspecified organism; R65.21 Severe sepsis with septic shock; I42.9 Cardiomyopathy, unspecified; N17.9 Acute kidney failure, unspecified; Z68.43 Body mass index [BMI] 50.0-59.9, adult; D69.6 Thrombocytopenia, unspecified; E66.9 Obesity, unspecified; I10 Essential (primary) hypertension; E03.9 Hypothyroidism, unspecified; M10.9 Gout, unspecified; I51.89 Other ill-defined heart diseases; G47.33 Obstructive sleep apnea (adult) (pediatric); E78.5 Hyperlipidemia, unspecified; E80.6 Other disorders of bilirubin metabolism; Z20.822 Contact with and (suspected) exposure to COVID-19; Z79.899 Other long term (current) drug therapy
CPT/HCPCS: 36415; 36569; 36600; 36620; 71045; 71275; 74018; 74174; 76775; 80053; 80202; 81001; 82375; 82550; 82565; 82570; 82805; 82948; 83050; 83605; 83690; 83735; 83880; 84100; 84133; 84300; 84443; 84484; 85025; 85055; 85610; 85730; 85999; 86022; 86140; 86850; 86900; 86901; 87040; 87081; 87086; 87449; 87637; 87899; 93005; 94003; 94640; 96365; 96375; 97165; 99291; A9270; C1751; C8929; C9113; J0131; J0456; J0692; J0780; J1644; J1720; J1815; J2060; J2370; J2405; J2765; J3010; J3370; J3480; J7030; J7040; J7050; J7060; P9047; Q9967